=== PATIENT | female | born 1965 | race Caucasian/White ===

== ENCOUNTER → 2016-06-02 | Outpatient (CLI) | payer BC, OTHER ==
[~2016-06-02] MED LIST: ASP325T PO; CALC1TAB PO; CALTRATE PO; CYAN250010 PO; DOCU100C37 PO; ESTR1TAB24 PO; ESZO3TAB30 PO; IBUP-1780 PO; LISI10TA PO; LYSI500T PO; MEDR10TA9 PO; METH5TAB5 PO; MULT-608 PO; NEBI5TAB8 PO; NFNEB10T PO; OXYC-465 PO; ROSU10TA12 PO; SPRINTEC PO; TERB250T PO
[2016-06-02 23:54] LABS: CALCIUM IONIZED 1.16 mmol/L (1.16-1.32); CORRECTED IONIZED CALCIUM 1.16 mmol/L (1.16-1.32)
[2016-06-03 08:12] LABS: CALCIUM PH 7.39
== END ==
LOC: LAB 14:11
PROVIDERS: ATTEND Otolaryngology
DX: E04.2 Nontoxic multinodular goiter (principal); E03.8 Other specified hypothyroidism
CPT/HCPCS: 36415; 82330

== ENCOUNTER → 2016-09-19 | Outpatient (CLI) | payer BC ==
--- NOTE | 2016-09-19 17:04 | Diagnostic Imaging Report ---
EXAMINATION: Three views of the lumbar spine. INDICATION: Back pain. FINDINGS: There is satisfactory alignment of the posterior spinal line. There is preserved vertebral body height. Mild disc height loss at L4-L5 and L5-S1 is seen. No significant posterior osteophytes noted. There are mild anterior osteophytes in the [id number] lumbar spine. Minimal sclerotic degenerative changes in the right SI joint are seen. IMPRESSION: Mild lower lumbar spine disc degenerative changes. Dictated by: Dictated on workstation # [id number]
--- NOTE | 2016-09-19 18:16 | Diagnostic Imaging Report ---
Three views of the thoracic spine. INDICATION: Back pain. FINDINGS: The alignment of the thoracic spine is satisfactory. The vertebral body heights are preserved. Disc heights are also preserved. There is multilevel mild anterior osteophyte formation seen. No posterior osteophytes are evident. The paravertebral soft tissues appear unremarkable. IMPRESSION: Minimal degenerative changes. Dictated by: Dictated on workstation # [id number]
== END ==
LOC: RAD 14:58
PROVIDERS: ATTEND Nurse Practitioner Family
DX: M54.5 Low back pain; M54.6 Pain in thoracic spine
CPT/HCPCS: 72072; 72100

== ENCOUNTER → 2016-09-26 | Outpatient (CLI) | payer BC ==
--- NOTE | 2016-09-26 17:08 | Diagnostic Imaging Report ---
PROCEDURE: MRI lumbar spine. TECHNIQUE: Multiplanar, multisequence MRI of the lumbar spine was performed without contrast. INDICATION: Back pain. There are no previous MRI examinations available for comparison. FINDINGS: The plain film examination of the lumbar spine performed on 09/19/16 failed to show any sign of an acute abnormality. However, there was degenerative disc and bony disease at L5-S1 and to a lesser degree at L4-L5. On the parasagittal images of this exam, there is again evidence of narrowing of the disc spaces at L5-S1 and L4-L5. The discs at these 2 levels are desiccated as well. At the L5-S1 level, there is a disc bulge eccentric to the left. The disc indents the left ventral aspect of the thecal sac and narrows the AP diameter to approximately 8.2 mm. There does not appear to be any significant narrowing of the neuroforamen at this level. At L4-L5, there is also a disc bulge slightly eccentric to the left. The disc narrows the AP diameter of the thecal sac to approximately 8.9 mm. There does not appear to be any significant neuroforaminal narrowing at this level. The remainder of the lumbar spine is unremarkable for spinal stenosis or nerve root encroachment. There is no abnormal signal arising from the cord or the vertebral bodies to indicate an acute abnormality. There is no sign of a paraspinal mass. IMPRESSION: 1. There is degenerative disc and bony disease at L4-L5 and L5-S1. There is mild central stenosis on the left at both these levels. There is no significant narrowing of the neuroforamen. 2. The remainder of the lumbar spine is unremarkable for spinal stenosis or nerve root encroachment. 3. There is no sign of an acute bony abnormality or of a cord lesion. Dictated by: Dictated on workstation # [id number]
== END ==
LOC: RAD 16:02
PROVIDERS: ATTEND Nurse Practitioner Family
DX: M51.36 Other intervertebral disc degeneration, lumbar region (principal)
CPT/HCPCS: 72148

== ENCOUNTER → 2016-10-07 | Outpatient (CLI) | payer BC ==
--- NOTE | 2016-10-10 09:32 | Diagnostic Imaging Report ---
EXAMINATION: Bilateral screening mammogram 2D views with tomosynthesis. The current study was also evaluated with a Computer Aided Detection (CAD) system. INDICATION: Screening. PERSONAL HISTORY: No current complaints stated on the questionnaire. COMPARISON: 10/07/2015. FINDINGS: The breasts are composed of heterogeneously dense parenchyma which may decrease mammographic sensitivity. Allowing for technique and positional differences, no suspicious change is seen. IMPRESSION: Dense breasts with no definite change. ACR BI-RADS Category 2: Benign findings. Result letter will be mailed to the patient. Note: At least 10% of breast cancer is not imaged by mammography. Dictated by: Dictated on workstation # [id number]
== END ==
LOC: RAD 10:26
PROVIDERS: ATTEND Obstetrics & Gynecology
DX: Z12.31 Encounter for screening mammogram for malignant neoplasm of breast (principal)
CPT/HCPCS: 77067

== ENCOUNTER 2017-05-26 05:42 | Outpatient (CLI) | payer BC ==
[~2017-05-26] VITALS: Ht 170.2 cm; Wt 93.0 kg
[2017-05-26] MEDS ORDERED: MULT1CAP27 PO (12:36)
[2017-05-26] MEDS ORDERED: LEVO100T7 PO (12:36)
[2017-05-26] MEDS ORDERED: ROSU10TA PO (12:36)
== END 2017-05-26 12:40 ==
LOC: PREOP 05:42
PROVIDERS: ATTEND Internal Medicine
DX: Z01.818 Encounter for other preprocedural examination (principal); Z12.11 Encounter for screening for malignant neoplasm of colon; Z80.0 Family history of malignant neoplasm of digestive organs

== ENCOUNTER 2017-06-02 06:57 | Day surgery (SDC) | payer BC ==
--- NOTE | 2017-05-19 12:29 | HISTORY AND PHYSICAL ---
DATE OF SERVICE: 06/02/2017 ADDENDUM: The patient was seen for H&P on 05/15/2017. HISTORY OF PRESENT ILLNESS: The patient is a 52-year-old white female referred by Dr Olmstead for screening colonoscopy. She is deemed to be of higher than average risk as her mother was diagnosed with colon cancer around the age of 60. The patient reports around 03/13, she did have the onset of diarrhea with small amount of bright red blood. She had no chills or fever, had some mild crampy abdominal pain. It was only on one occasion and has not recurred since. She currently feels well, reporting stable weight. Denying abdominal pain, bowel habit change other than the above which lasted for several days. She states that she has been feeling well. No chest pain, shortness of breath or dyspnea on exertion. MEDICATIONS ON ADMISSION: Include Crestor 10 mg daily, estradiol 1 mg daily, Bystolic 5 mg daily, Caltrate with D one daily, and L-thyroxine 100 mcg daily. PAST SURGICAL HISTORY: She had thyroidectomy for what sounds like multinodular goiter in 05/2016 and has been on thyroid replacement since. She had total abdominal hysterectomy in 02/2016 and appendectomy in 2009. FAMILY HISTORY: Most notable for mother diagnosed with colon cancer at the age of 60. 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 PHYSICAL EXAMINATION: GENERAL: Reveals a well-appearing white female in no acute distress. VITAL SIGNS: Blood pressure 124/94, pulse 66 and regular. HEENT: She is a Mallampati class II oropharyngeal configuration. No evidence for pharyngeal erythema is noted. CHEST: Clear to auscultation. CARDIOVASCULAR: Reveals a regular rate and rhythm without murmur, S3 or S4. ABDOMEN: Soft, supple without mass, organomegaly or tenderness. EXTREMITIES: Reveal no cyanosis, clubbing or edema. ASSESSMENT: The patient is set up for screening colonoscopy on 06/02/2017. Prep instructions with the Suprep kit were given and she is deemed to be of higher than average risk as there is a first degree family history of colon cancer. Index case being her mother diagnosed around the age of 60. I thank you for the referral of this pleasant lady. Job ID: [id number] DocumentID: [id number] Dictated Date: 05/19/2017 11:37:20 Forging Machine Operator Date: 05/19/2017 12:28:16 Dictated By: JULES MELO MD MTDD
[~2017-06-02] VITALS: Ht 170.2 cm; Wt 93.0 kg
[~2017-06-02 06:57] MED LIST changes: +LEVO100T7 PO; +MULT1CAP27 PO; +ROSU10TA PO
--- OUTSIDE RECORDS SUMMARY | 2017-06-02 07:00 | XMS REPORT | Clinical Summary ---
Author Author [facility] Organization [facility] Address Unknown Phone Unavailable Care Team Providers Care Rubber Turner Name Role Phone Jeremiah Hanley MD PCP Flores Krishnan MD Unavailable Source Comments Some departments are not documenting in the electronic medical record. If you do not see the information that you expected, contact Release of Information in the Health Information Management department at [phone] for further assistance in locating additional records.[facility] Allergies Not on File Current Medications Prescription Sig. Disp. Refills Start End Date Status Date rosuvastatin (CRESTOR) 10 Take 10 mg by mouth Active mg tablet daily. nebivolol (BYSTOLIC) 5 mg Take 5 mg by mouth daily. Active tablet aspirin EC 81 mg tablet Take 81 mg by mouth Active daily. cyanocobalamin (VITAMIN Take 1,000 mcg by mouth Active B-12) 1,000 mcg tablet daily. CALCIUM CARBONATE Take by mouth. Active (CALTRATE 600 PO) MULTIVIT WITH Take 1 Tab by mouth Active CALCIUM,IRON,MIN daily. (ONE-A-DAY WOMENS FORMULA PO) zolpidem CR (AMBIEN CR) Take 12.5 mg by mouth at Active 12.5 mg tablet bedtime as needed. methimazole (TAPAZOLE) 5 Take 1 Tab by mouth 30 Tab 11 08/10/19 Active mg tablet daily. 12 Active Problems Problem Noted Date Thyroid dysfunction 07/26/2011 Hyperthyroidism 07/26/2011 Goiter 07/26/2011 HTN (hypertension) 07/26/2011 Family History Medical History Relation Name Comments Hypertension Mother Thyroid Disease Mother Relation Name Status Comments Father (Age 50) Mother Alive Social History Tobacco Use Types Packs/Day Years Used Date Never Smoker Smokeless Tobacco: Never Used Tobacco Cessation: Counseling Given: No Sex Assigned at Date Recorded Not on file Last Filed Vital Signs Vital Sign Reading Time Taken Blood Pressure 108/61 07/26/2011 12:52 PM CDT Pulse 75 07/26/2011 12:52 PM CDT Temperature - - Respiratory Rate - - Oxygen Saturation - - Inhaled Oxygen - - Concentration Weight 67.9 kg (149 lb 9.6 oz) 07/26/2011 12:52 PM CDT Height - - Body Mass Index - - Plan of Treatment Health Maintenance Due Date Last Done Comments HEPATITIS C SCREENING 1964 PHYSICAL (COMPREHENSIVE) 1971 EXAM PERTUSSIS VACCINE 1975 HIV SCREENING 1979 TETANUS VACCINE 1981 CERVICAL CANCER SCREENING 1994 BREAST CANCER SCREENING 2004 COLORECTAL CANCER 2014 SCREENING INFLUENZA VACCINE 12/11/2017 Results Not on filefrom Last 3 Months
[2017-06-02] MEDS ORDERED: 1/2 NS IV SOLUTION 1,000 ML IV STA (07:01)
[2017-06-02] MEDS ORDERED: LIDOCAINE JELLY 2% (XYLOCAINE) 5 ML TUBE MM PRN (07:15)
[2017-06-02 07:24] VITALS: BP 140/86
[2017-06-02] MEDS ORDERED: fentaNYL INJECTION 100 MCG/2 ML AMP ONE ×2 (07:41→08:35)
[2017-06-02] MEDS ORDERED: LIDOCAINE JELLY 2% (XYLOCAINE) 5 ML TUBE ONE (07:41)
[2017-06-02] MEDS ORDERED: MIDAZOLAM 2 MG/2 ML (VERSED) VIAL ONE ×3 (07:42)
[2017-06-02] MEDS: fentaNYL INJECTION 100 MCG/2 ML AMP IVP PRN ×4 (08:05→08:40)
[2017-06-02] MEDS: MIDAZOLAM 2 MG/2 ML (VERSED) VIAL IVP PRN ×3 (08:06→08:41)
[2017-06-02] MEDS ORDERED: ONDANSETRON 4 MG/2 ML (SDV) Z0FRAN ONE (08:44)
[2017-06-02] MEDS ORDERED: ONDANSETRON 4 MG/2 ML (SDV) Z0FRAN IVP ONE (09:00)
[2017-06-02 09:10] VITALS: BP 159/52
[2017-06-02 09:34] VITALS: BP 132/76
--- NOTE | 2017-06-02 10:08 | Pre-Op Note & Conscious Sedat ---
Pre-Operative Progress Note H&P Reviewed The H&P was reviewed, patient examined and no changes noted. Date H&P Reviewed: Jun 02, 2017 Time H&P Reviewed: 07:45 Conscious Sedation Pre-Proced ASA Class: 2 Airway Mallampati Classification: (kalt[place] appropriate class) I. II. III, IV Lungs Heart ASA score ASA 1: a normal healthy patient ASA 2: a patient with a mild systemic disease (mid diabetes, controlled hypertension, obesity ASA 3: a patient with a severe systemic disease that limits activity (angina , COPD, prior Myocardial infarction) ASA 4: a patient with an incapacitating disease that is a constant threat to life (CHF, renal failure) ASA 5: a moribund patient not expected to survive 24 hrs. (ruptured aneurysm) ASA 6: a declared brain patient whose organs are being harvested. For emergent operations, add the letter E after the classification Grade 2 Sedation Plan: Analgesia, Amnesia, Plan communicated to team members, Discussed options with patient/fam, Discussed risks with patient/fam Note The patient is an appropriate candidate to undergo the planned procedure, sedation, and anesthesia. The patient immediately re-assessed prior to indication. JULES MELO MD Jun 02, 2017 10:08
[2017-06-02 10:30] VITALS: BP 132/76
--- NOTE | 2017-06-02 15:24 | OPERATIVE REPORT ---
DATE OF SERVICE: 06/02/2017 REFERRING PHYSICIAN: Oscar Olmstead MD INDICATION FOR THE PROCEDURE: Screening colonoscopy, family history of colon cancer. DESCRIPTION OF THE PROCEDURE: The patient was placed in left lateral decubitus position. Prior to undergoing colonoscopy digital rectal evaluation was performed. Anal sphincter tone was normal and the perianal reflexes intact. No abnormalities were noted on visual inspection of anal canal or distal rectal vault. The colonoscope was then inserted into the rectum and under direct visualization advanced to the cecum. The cecum was identified by identification of the ileocecal valve and cecal strap. Photographic documentation was obtained. Careful inspection was made as the colonoscope withdrawn. The patient tolerated the procedure well. FINDINGS: There was no evidence for internal or external hemorrhoids. Present distal rectum with a diminutive sessile 2 mm hyperplastic appearing polyp. It was biopsied, ablated and submitted for histopathology with no noted blood loss. The remainder of the rectum was unremarkable. There is sigmoid and colonic redundancy, but no evidence for diverticular disease or polyps. The descending colon, splenic flexure, transverse colon, hepatic flexure, ascending colon and cecum were unremarkable. ASSESSMENT: Diminutive hyperplastic appearing polyp was present in the distal rectum. It was subsequently biopsied and ablated with hot forceps with no subsequent blood loss. No other significant abnormalities were noted on today's procedure. Considering family history we would advocate consideration for repeat screening colonoscopy in 5 years. I thank you for the referral of this pleasant lady. Job ID: [id number] DocumentID: [id number] Dictated Date: 06/02/2017 10:21:55 Electrical Fitter Date: 06/02/2017 14:32:59 Dictated By: JULES MELO MD
== END 2017-06-02 10:30 | disposition home or self-care (01) ==
LOC: ENDO 06:57
PROVIDERS: ATTEND Internal Medicine
DX: Z12.11 Encounter for screening for malignant neoplasm of colon (principal); K62.1 Rectal polyp; Z80.0 Family history of malignant neoplasm of digestive organs; Z79.899 Other long term (current) drug therapy

== ENCOUNTER → 2017-10-11 | Outpatient (CLI) | payer BC ==
--- NOTE | 2017-10-11 12:19 | Diagnostic Imaging Report ---
INDICATION: Routine screening. Comparison is made with prior exam from 10/07/2016 and 10/07/2015. 2-D and 3-D bilateral screening mammography was performed with a Computer Aided Detection (CAD) system. FINDINGS: Both breasts remain heterogeneously dense, limiting the sensitivity of mammography. The parenchymal pattern is stable. There are benign calcifications bilaterally. No dominant mass or malignant appearing microcalcifications are seen. The axillae are unremarkable. IMPRESSION: No mammographic features suspicious for malignancy are identified. ACR BI-RADS Category 2: Benign findings. Result letter will be mailed to the patient. Note: At least 10% of breast cancer is not imaged by mammography. Dictated by: Dictated on workstation # [id number]
== END ==
LOC: RAD 10:00
PROVIDERS: ATTEND Obstetrics & Gynecology
DX: Z12.31 Encounter for screening mammogram for malignant neoplasm of breast (principal)
CPT/HCPCS: 77067

== ENCOUNTER → 2018-01-08 | Outpatient (CLI) | payer BC ==
--- NOTE | 2018-01-08 11:57 | Diagnostic Imaging Report ---
PROCEDURE: US left lower extremity venous. TECHNIQUE: Multiple Real-time grayscale images were obtained over the left lower extremity in various projections. Additional duplex Doppler and color Doppler images were also obtained. INDICATION: Left leg pain. FINDINGS: The veins in the left leg have good color filling and compressibility. There is normal spontaneous and augmented flow. IMPRESSION: Negative venous Doppler left leg. Dictated by: Dictated on workstation # [id number]
== END ==
LOC: RAD 11:11
PROVIDERS: ATTEND Nurse Practitioner Family
DX: M79.605 Pain in left leg (principal); R20.2 Paresthesia of skin

== ENCOUNTER → 2018-02-22 | Outpatient (CLI) | payer BC | LOC: CARD 11:52 | PROVIDERS: ATTEND Internal Medicine Cardiovascular Disease | DX: I82.409 Acute embolism and thrombosis of unspecified deep veins of unspecified lower extremity (principal); R00.2 Palpitations; E78.5 Hyperlipidemia, unspecified; I10 Essential (primary) hypertension; I08.1 Rheumatic disorders of both mitral and tricuspid valves | CPT/HCPCS: 93306 ==

== ENCOUNTER → 2018-04-11 | Outpatient (CLI) | payer BC ==
[~2018-04-11] MED LIST changes: +CATHETER FLUSH 10 ML SYR IV PRN
[2018-04-11 09:29] VITALS: BP 174/78
--- NOTE | 2018-04-11 14:53 | STRESS TEST ---
DATE OF SERVICE: 04/11/2018 EXERCISE MYOVIEW STRESS TEST REPORT REFERRING PHYSICIAN: Dr. Olmstead. Baseline heart rate is 60. Baseline blood pressure 141/92. Baseline EKG, sinus rhythm with no ischemic changes. In summary, the patient was injected with 10.86 mCi of technetium-99 Myoview and the resting images were obtained. Then, the patient started exercising with a baseline heart rate, blood pressure and EKG mentioned above. The patient was able to exercise for 6 minutes 30 seconds on standard Dg protocol. With peak exercise level, EKG was showing [address] depression in II, III, aVF, V4, V5 and V6. During recovery, the ST depression became more horizontal with T-wave inversion. The resting and stress images were reviewed and compared in the short axis, horizontal long axis, and vertical long axis views. Review of the images showed breast attenuation with reversible ischemia involving the mid to apical anterior wall and anterolateral wall. SSS is 8, SDS 8, TID value 0.92. On the gated images, the left ventricle appeared to be normal in size with normal contractility. Calculated ejection fraction 57%. CONCLUSION: 1. Fair exercise tolerance, a total of 6 minutes 30 seconds on standard Dg protocol, total of 7.9 METS achieving 91% of maximum expected heart rate. 2. Hypertensive response to exercise, returned to baseline during recovery. 3. Reversible ischemia involving the mid to apical anterior wall and anterolateral wall. 4. Nondiagnostic EKG changes with exercise returned to baseline during recovery. 5. Normal left ventricular size with normal contractility. Calculated ejection fraction 57%. Job ID: [id number] DocumentID: [id number] Dictated Date: 04/11/2018 14:28:00 Acquisition Marketing Coordinator Date: 04/11/2018 14:52:42 Dictated By: OLIVIA QUINONES MD
== END ==
LOC: CARD 07:30
PROVIDERS: ATTEND Physician Assistant
DX: R00.2 Palpitations (principal); E78.5 Hyperlipidemia, unspecified; I10 Essential (primary) hypertension
CPT/HCPCS: 78452; 93017

== ENCOUNTER 2018-04-25 08:46 | Day surgery (SDC) | payer BC ==
[~2018-04-25] VITALS: Ht 170.2 cm; Wt 95.3 kg
[~2018-04-25 08:46] MED LIST changes: -CATHETER FLUSH 10 ML SYR IV PRN
[2018-04-25] MEDS ORDERED: LIDOCAINE 1% INJ 20 ML 20 ML VIAL ONE (09:08)
[2018-04-25] MEDS ORDERED: HEParin (CATH LAB) 2,000 ML IV ONE (09:08)
[2018-04-25] MEDS ORDERED: NS IV 1000 ML 1,000 ML ONE (09:08)
[2018-04-25 09:28] VITALS: BP 141/79
[2018-04-25] MEDS ORDERED: LISI10TA2 PO (09:36)
[2018-04-25 09:59] LABS: HEMOGLOBIN 12.9 G/DL (11.5-16.0); MEAN PLATELET VOLUME 10.5 FL (7.4-10.4); RED CELL DISTRIBUTION WIDTH 13.7 % (10.0-14.5); WHITE BLOOD COUNT 7.3 10^3/uL (4.3-11.0)
--- NOTE | 2018-04-25 10:01 | Diagnostic Imaging Report ---
INDICATION: Abnormal stress test. Chest pain. Hypertension. COMPARISON: 01/12/2010 FINDINGS: Single frontal view of the chest demonstrates normal heart size and pulmonary vascularity. The lungs are well aerated and clear. No large pleural effusion or pneumothorax is seen. The visualized osseous structures show no acute abnormalities. IMPRESSION: 1. No acute cardiopulmonary process. Dictated by: Dictated on workstation # [id number]
[2018-04-25 10:08] LABS: PROTHROMBIN TIME PATIENT 12.7 SEC (12.2-14.7)
[2018-04-25] MEDS ORDERED: FLU QUADRIvalent (5+ YOA) 2018-2019 (AFLURIA) 0.5 ML IM ONE (10:15)
[2018-04-25] MEDS ORDERED: NS IV 1000 ML 1,000 ML IV SCH ×3 (10:15→11:15)
[2018-04-25 10:16] LABS: ALANINE AMINOTRANSFERASE 14 U/L (0-55); ALBUMIN 4.2 GM/DL (3.2-4.5); ALKALINE PHOSPHATASE 110 U/L (40-136); BILIRUBIN,TOTAL 0.5 MG/DL (0.1-1.0); BUN/CREATININE RATIO 21; CALCIUM 8.8 MG/DL (8.5-10.1); CARBON DIOXIDE 24 MMOL/L (21-32); CHLORIDE 105 MMOL/L (98-107); GFR ESTIMATED > 60; GLUCOSE 87 MG/DL (70-105); SODIUM 140 MMOL/L (135-145); TOTAL PROTEIN 7.1 GM/DL (6.4-8.2)
[2018-04-25] MEDS ORDERED: MIDAZOLAM 5 MG/5 ML (VERSED) VIAL ONE (10:22)
[2018-04-25] MEDS ORDERED: fentaNYL INJECTION 100 MCG/2 ML AMP ONE (10:22)
[2018-04-25] MEDS ORDERED: PATIENT MAY USE OWN MEDS, ALL PO SCH ×2 (11:15)
--- NOTE | 2018-04-25 11:17 | Discharge Inst-Post CATH ---
Discharge Inst-CATH/EP Post Cardiac Cath/EP D/C Inst Follow Up/Plan Appointment with Dr. Ledbetter's office in 4 weeks CARDIAC CATH DISCHARGE INSTRUCTIONS *Hold Metformin for 48 hours post heart cath. ACTIVITY * Go Home directly and rest. * Limit activity of the leg (or wrist if it was used) for 7 days including aerobics, swimming, jogging, bicycling, etc. * Restrict stair-climbing for 7 days if possible, if not, climb up with your non -cath leg, then bring together on the same step. * Avoid lifting, pushing, pulling or excessive movement of the affected extremity for 7 days. * Customary sexual activity may be resumed after 2 days-use caution not to use a position that strains or causes pain to the affected extremity. * No driving for 24 hours. * NO SMOKING. * Avoid straining for bowel movements for 7 days. * Gentle walking on level ground is allowed. * Returning to work will depend on the type of procedure and the results. Your doctor will discuss this with you. CALL YOUR DOCTOR FOR ANY OF THE FOLLOWING: *If bleeding from the puncture site occurs- Apply gentle pressure to site with clean cloth and call your doctor or EMS. * If a knot or lump forms under the skin, increases in size, or causes pain. * If bruising appears to be worsening or moving further down your leg instead of disappearing. * Temperature above 101 F. CARE OF YOUR GROIN INCISION; * Bruising or purple discoloration of the skin near the puncture site is common. * You may shower only, no bathtub bathing for 5 days. Be careful to avoid slipping as your leg may feel stiff. * If a closure device was used on your femoral artery, please see the attached guide regarding care of the device and your leg. * Leave the dressing on, until removed by office staff. CARE OF YOUR WRIST INCISION; * Bruising or purple discoloration of the skin near the puncture site is common. * You may shower. * DO NOT submerge wrist. * Leave dressing on, until removed by office staff.. OLIVIA LEDBETTER MD Apr 25, 2018 11:17
--- NOTE | 2018-04-25 11:21 | Cardiac Cath Report ---
Cardiac Cath Report Physician (s)/Blast Furnace Operator (s) Physician OLIVIA QUINONES MD Pre-Procedure Diagnosis Pre-Procedure Diagnosis: coronary artery disease Post-Procedure Note Procedure Start Date: Apr 25, 2018 Name of Procedure: left heart catheterization Findings/Procedure Note PROCEDURE NOTE: After explaining the procedure to the patient, all pros and cons were explained , all questions were answered. The patient signed the consent and then she was placed on the cardiac catheterization laboratory. Groin was prepped SL fashion local anesthesia was used. Sheath placed in the right femoral artery. Michelle right and left catheter were used to access the coronary system. Pigtail was used to access the left ventricular cavity. Left ventriculogram was not done, pressure was measured At the end of the procedure the sheath was removed. Closure device was not used FINDINGS: Hemodynamics LV 187/16, end-diastolic pressure of 16 Aorta 169/84 mean of 114 ANATOMY: Left Main is free of obstructive disease Left Anterior Descending has mild disease nonobstructive disease Left Circumflex is dominant artery with mild disease, nonobstructive disease Right Coronory Artery has mild disease nonobstructive disease CONCLUSION: 1. Mild coronary artery disease nonobstructive disease 2. Hypertension with mild elevation in left ventricular end-diastolic pressure DISCUSSION AND RECOMMENDATION: continue to maximize medical therapy, no intervention is needed Anesthesia Type: Conscious Sedation Estimated blood loss (mL): 15 ml Contrast Amount: 30 ml Total Radiation Dose: 195 mGy Post-Procedure Diagnosis Post-operative diagnosis: Chest pain Coronary artery disease Hypertension Hyperlipidemia OLIVIA QUINONES MD Apr 25, 2018 11:21
--- OUTSIDE RECORDS SUMMARY | 2018-04-25 11:37 | XMS REPORT | Clinical Summary ---
Author Author [facility] Organization [facility] Address Unknown Phone Unavailable Care Team Providers Care Facing End Trimmer Name Role Phone Jeremiah Hanley MD PCP Flores Krishnan MD Unavailable Source Comments Some departments are not documenting in the electronic medical record. If you do not see the information that you expected, contact Release of Information in the Health Information Management department at [phone] for further assistance in locating additional records.[facility] Allergies Not on File Medications End Date Status Medication Sig Dispensed Refills Start Date Active rosuvastatin (CRESTOR) 10 Take 10 mg by 0 mg tablet mouth daily. Active nebivolol (BYSTOLIC) 5 mg Take 5 mg by 0 tablet mouth daily. Active aspirin EC 81 mg tablet Take 81 mg by 0 mouth daily. Active cyanocobalamin (VITAMIN Take 1,000 0 B-12) 1,000 mcg tablet mcg by mouth daily. Active CALCIUM CARBONATE Take by 0 (CALTRATE 600 PO) mouth. Active MULTIVIT WITH Take 1 Tab by 0 CALCIUM,IRON,MIN mouth daily. (ONE-A-DAY WOMENS FORMULA PO) Active zolpidem CR (AMBIEN CR) Take 12.5 mg 0 12.5 mg tablet by mouth at bedtime as needed. Active methimazole (TAPAZOLE) 5 Take 1 Tab by 30 Tab 11 08/09/201 mg tablet mouth daily. 2 Active Problems Problem Noted Date Thyroid dysfunction 07/26/2011 Hyperthyroidism 07/26/2011 Goiter 07/26/2011 HTN (hypertension) 07/26/2011 Family History Medical History Relation Name Comments Hypertension Mother Thyroid Disease Mother Relation Name Status Comments Father (Age 50) Mother Alive Social History Date Tobacco Use Types Packs/Day Years Used Never Smoker Smokeless Tobacco: Never Used Tobacco Cessation: Counseling Given: No Sex Assigned at Date Recorded Not on file Industry Job Start Date Occupation Not on file Not on file Not on file Travel End Travel History Travel Start No recent travel history available. Last Filed Vital Signs Time Taken Vital Sign Reading 07/26/2011 12:52 PM CDT Blood Pressure 108/61 07/26/2011 12:52 PM CDT Pulse 75 - Temperature - - Respiratory Rate - - Oxygen Saturation - - Inhaled Oxygen - Concentration 07/26/2011 12:52 PM CDT Weight 67.9 kg (149 lb 9.6 oz) - Height - - Body Mass Index - Plan of Treatment Health Maintenance Due Date Last Done Comments HEPATITIS C SCREENING 1964 PHYSICAL (COMPREHENSIVE) 1971 EXAM HIV SCREENING 1979 DTAP/TDAP VACCINES (1 - 1982 Tdap) CERVICAL CANCER SCREENING 1994 BREAST CANCER SCREENING 2004 COLORECTAL CANCER 2014 SCREENING SHINGLES RECOMBINANT 2014 VACCINE (1 of 2) INFLUENZA VACCINE 10/11/2017 Results Not on filefrom Last 3 Months
--- OUTSIDE RECORDS SUMMARY | 2018-04-25 11:38 | XMS REPORT | Continuity of Care Document ---
Author Author [facility] Organization [facility] Address Unknown Phone Unavailable Allergies Active Description Code Type Severity Reaction Onset Reported/Identified Relationship to Patient Clinical Status Yes No Known Drug Allergies [id number] Drug Allergy Unknown N/A 05/26/2017 Medications There is no data. Problems Date Dx Coded Attending Type Code Diagnosis Diagnosed By 08/27/2009 Ot 540.9 ACUTE APPENDICITIS NOS 08/27/2009 Ot 789.59 OTHER ASCITES 02/25/2014 MENDEZ MARLEY LEISURE STUDIES PROFESSOR Ot 719.41 02/25/2014 MENDEZ MARLEY LEISURE STUDIES PROFESSOR Ot 719.41 10/10/2014 ALEJANDRO FARIA MD Ot V76.12 10/30/2014 MENDEZ MARLEY APRN Ot 453.41 10/30/2014 ALEJANDRO FARIA MD Ot V76.12 10/08/2015 ALEJANDRO FARIA MD Ot Z12.31 ENCNTR SCREEN MAMMOGRAM FOR MALIGNANT NE 10/08/2015 ALEJANDRO FARIA MD Ot Z12.31 ENCNTR SCREEN MAMMOGRAM FOR MALIGNANT NE 10/16/2015 OLIVIA QUINONES MD Ot E78.2 MIXED HYPERLIPIDEMIA 10/16/2015 OLIVIA QUINONES MD Ot I10 ESSENTIAL (PRIMARY) HYPERTENSION 10/16/2015 OLIVIA QUINONES MD Ot I82.409 ACUTE EMBOLISM AND THOMBOS UNSP DEEP VN 10/16/2015 OLIVIA QUINONES MD Ot R00.2 PALPITATIONS 10/16/2015 OLIVIA QUINONES MD Ot Z82.49 FAMILY HX OF ISCHEM HEART DIS AND OTH DI 10/16/2015 OLIVIA QUINONES MD, Ot E78.2 MIXED HYPERLIPIDEMIA 10/16/2015 OLIVIA QUINONES MD Ot I10 ESSENTIAL (PRIMARY) HYPERTENSION 10/16/2015 OLIVIA QUINONES MD, Ot I82.409 ACUTE EMBOLISM AND THOMBOS UNSP DEEP VN 10/16/2015 OLIVIA QUINONES MD Ot R00.2 PALPITATIONS 10/16/2015 OLIVIA QUINONES MD Ot Z82.49 FAMILY HX OF ISCHEM HEART DIS AND OTH DI 10/23/2015 ALEJANDRO FARIA MD, Ot Z12.31 ENCNTR SCREEN MAMMOGRAM FOR MALIGNANT NE 10/27/2015 Ot V76.12 OTH SCREEN MAMMO-MALIGN NEOPLASM OF [place] 10/27/2015 Ot V76.12 OTH SCREEN MAMMO-MALIGN NEOPLASM OF [place] 10/27/2015 Ot 368.2 DIPLOPIA 10/27/2015 JANIE IVON Bessy BAKE ROOM WORKER Ot 300.12 DISSOCIATIVE AMNESIA 10/27/2015 ALEJANDRO FARIA MD Ot 793.82 INCONCLUSIVE MAMMOGRAM 10/27/2015 ALEJANDRO FARIA MD, Ot V76.12 OTH SCREEN MAMMO-MALIGN NEOPLASM OF [place] 10/27/2015 ALEJANDRO FARIA MD Ot 793.80 UNSPEC ABNORMAL MAMMOGRAM 10/27/2015 ALEJANDRO FARIA MD Ot 793.80 UNSPEC ABNORMAL MAMMOGRAM 10/27/2015 ALEJANDRO FARIA MD, Ot V76.12 OTH SCREEN MAMMO-MALIGN NEOPLASM OF [place] 10/27/2015 MENDEZ MARLEY LEISURE STUDIES PROFESSOR Ot 719.41 JOINT PAIN-SHLDER 10/27/2015 MENDEZ MARLEY LEISURE STUDIES PROFESSOR Ot 719.41 JOINT PAIN-SHLDER 10/27/2015 ALEJANDRO FARIA MD, Ot V76.12 OTH SCREEN MAMMO-MALIGN NEOPLASM OF [place] 10/27/2015 MENDEZ MARLEY LEISURE STUDIES PROFESSOR Ot 453.41 ACUTE VENOUS EMBOLISM THROMBOSIS DEEP 10/27/2015 ALEJANDRO FARIA MD, Ot Z12.31 ENCNTR SCREEN MAMMOGRAM FOR MALIGNANT NE 10/27/2015 OLIVIA QUINONES MD Ot E78.2 MIXED HYPERLIPIDEMIA 10/27/2015 OLIVIA QUINONES MD Ot I10 ESSENTIAL (PRIMARY) HYPERTENSION 10/27/2015 OLIVIA QUINONES MD Ot I82.409 ACUTE EMBOLISM AND THOMBOS UNSP DEEP VN 10/27/2015 OLIVIA QUINONES MD Ot R00.2 PALPITATIONS 10/27/2015 OLIVIA QUINONES MD, Ot Z82.49 FAMILY HX OF ISCHEM HEART DIS AND OTH DI 12/03/2015 Ot V76.12 OTH SCREEN MAMMO-MALIGN NEOPLASM OF [place] 12/03/2015 Ot V76.12 OTH SCREEN MAMMO-MALIGN NEOPLASM OF [place] 12/03/2015 Ot 368.2 DIPLOPIA 12/03/2015 IVON LIMA BAKE ROOM WORKER Ot 300.12 DISSOCIATIVE AMNESIA 12/03/2015 ALEJANDRO FARIA MD Ot 793.82 INCONCLUSIVE MAMMOGRAM 12/03/2015 ALEJANDRO FARIA MD, Ot V76.12 OTH SCREEN MAMMO-MALIGN NEOPLASM OF [place] 12/03/2015 ALEJANDRO FARIA MD Ot 793.80 UNSPEC ABNORMAL MAMMOGRAM 12/03/2015 ALEJANDRO FARIA MD Ot 793.80 UNSPEC ABNORMAL MAMMOGRAM 12/03/2015 ALEJANDRO FARIA MD, Ot V76.12 OTH SCREEN MAMMO-MALIGN NEOPLASM OF [place] 12/03/2015 MENDEZ MARLEY LEISURE STUDIES PROFESSOR Ot 719.41 JOINT PAIN-SHLDER 12/03/2015 MENDEZ MARLEY N LEISURE STUDIES PROFESSOR Ot 719.41 JOINT PAIN-SHLDER 12/03/2015 ALEJANDRO FARIA MD, Ot V76.12 OTH SCREEN MAMMO-MALIGN NEOPLASM OF [place] 12/03/2015 MENDEZ MARLEY LEISURE STUDIES PROFESSOR Ot 453.41 ACUTE VENOUS EMBOLISM THROMBOSIS DEEP 12/03/2015 ALEJANDRO FARIA MD Ot Z12.31 ENCNTR SCREEN MAMMOGRAM FOR MALIGNANT NE 12/03/2015 OLIVIA QUINONES MD Ot E78.2 MIXED HYPERLIPIDEMIA 12/03/2015 OLIVIA QUINONES MD Ot I10 ESSENTIAL (PRIMARY) HYPERTENSION 12/03/2015 OLIVIA QUINONES MD Ot I82.409 ACUTE EMBOLISM AND THOMBOS UNSP DEEP VN 12/03/2015 OLIVIA QUINONES MD Ot R00.2 PALPITATIONS 12/03/2015 OLIVIA QUINONES MD Ot Z82.49 FAMILY HX OF ISCHEM HEART DIS AND OTH DI 12/31/2015 OLIVIA QUINONES MD Ot E78.2 MIXED HYPERLIPIDEMIA 12/31/2015 OLIVIA QUINONES MD Ot I10 ESSENTIAL (PRIMARY) HYPERTENSION 12/31/2015 OLIVIA QUINONES MD Ot I82.409 ACUTE EMBOLISM AND THOMBOS UNSP DEEP VN 12/31/2015 OLIVIA QUINONES MD Ot R00.2 PALPITATIONS 12/31/2015 OLIVIA QUINONES MD Ot Z82.49 FAMILY HX OF ISCHEM HEART DIS AND OTH DI 12/31/2015 Ot V76.12 OTH SCREEN MAMMO-MALIGN NEOPLASM OF [place] 12/31/2015 Ot V76.12 OTH SCREEN MAMMO-MALIGN NEOPLASM OF [place] 12/31/2015 Ot 368.2 DIPLOPIA 12/31/2015 OSIVON RAGSDALE BAKE ROOM WORKER Ot 300.12 DISSOCIATIVE AMNESIA 12/31/2015 ALEJANDRO FARIA MD Ot 793.82 INCONCLUSIVE MAMMOGRAM 12/31/2015 ALEJANDRO FARIA MD, Ot V76.12 OTH SCREEN MAMMO-MALIGN NEOPLASM OF [place] 12/31/2015 ALEJANDRO FARIA MD Ot 793.80 UNSPEC ABNORMAL MAMMOGRAM 12/31/2015 ALEJANDRO FARIA MD Ot 793.80 UNSPEC ABNORMAL MAMMOGRAM 12/31/2015 ALEJANDRO FARIA MD, Ot V76.12 OTH SCREEN MAMMO-MALIGN NEOPLASM OF [place] 12/31/2015 MENDEZ MARLEY LEISURE STUDIES PROFESSOR Ot 719.41 JOINT PAIN-SHLDER 12/31/2015 MENDEZ MARLEY N LEISURE STUDIES PROFESSOR Ot 719.41 JOINT PAIN-SHLDER 12/31/2015 ALEJANDRO FARIA MD Ot V76.12 OTH SCREEN MAMMO-MALIGN NEOPLASM OF [place] 12/31/2015 MENDEZ MARLEY LEISURE STUDIES PROFESSOR Ot 453.41 ACUTE VENOUS EMBOLISM THROMBOSIS DEEP 12/31/2015 ALEJANDRO FARIA MD Ot Z12.31 ENCNTR SCREEN MAMMOGRAM FOR MALIGNANT NE 12/31/2015 OLIVIA QUINONES MD Ot E78.2 MIXED HYPERLIPIDEMIA 12/31/2015 OLIVIA QUINONES MD Ot I10 ESSENTIAL (PRIMARY) HYPERTENSION 12/31/2015 OLIVIA QUINONES MD Ot I82.409 ACUTE EMBOLISM AND THOMBOS UNSP DEEP VN 12/31/2015 OLIVIA QUINONES MD Ot R00.2 PALPITATIONS 12/31/2015 OLIVIA QUINONES MD, Ot Z82.49 FAMILY HX OF ISCHEM HEART DIS AND OTH DI 01/07/2016 OLIVIA QUINONES MD Ot E78.2 MIXED HYPERLIPIDEMIA 01/07/2016 OLIVIA QUINONES MD, Ot I10 ESSENTIAL (PRIMARY) HYPERTENSION 01/07/2016 OLIVIA QUINONES MD Ot R00.2 PALPITATIONS 01/07/2016 OLIVIA QUINONES MD, Ot Z82.49 FAMILY HX OF ISCHEM HEART DIS AND OTH DI 02/24/2016 ALEJANDRO FARIA MD, Ot D64.9 ANEMIA, UNSPECIFIED 02/24/2016 ALEJANDRO FARIA MD, Ot N92.0 EXCESSIVE AND FREQUENT MENSTRUATION WITH 02/24/2016 ALEJANDRO FARIA MD, Ot N93.8 OTHER SPECIFIED ABNORMAL UTERINE AND VAG 02/24/2016 ALEJANDRO FARIA MD, Ot R19.09 OTHER INTRA-ABDOMINAL AND PELVIC SWELLIN 02/24/2016 ALEJANDRO FARIA MD, Ot Z01.812 ENCOUNTER FOR PREPROCEDURAL LABORATORY E 02/24/2016 ALEJANDRO FARIA MD, Ot Z11.2 ENCOUNTER FOR SCREENING FOR OTHER BACTER 02/24/2016 Ot V76.12 OTH SCREEN MAMMO-MALIGN NEOPLASM OF [place] 02/24/2016 Ot V76.12 OTH SCREEN MAMMO-MALIGN NEOPLASM OF [place] 02/24/2016 Ot 368.2 DIPLOPIA 02/24/2016 IVON LIMA Ot 300.12 DISSOCIATIVE AMNESIA 02/24/2016 ALEJANDRO FARIA MD Ot 793.82 INCONCLUSIVE MAMMOGRAM 02/24/2016 ALEJANDRO FARIA MD, Ot V76.12 OTH SCREEN MAMMO-MALIGN NEOPLASM OF [place] 02/24/2016 ALEJANDRO FARIA MD Ot 793.80 UNSPEC ABNORMAL MAMMOGRAM 02/24/2016 ALEJANDRO FARIA MD Ot 793.80 UNSPEC ABNORMAL MAMMOGRAM 02/24/2016 ALEJANDRO FARIA MD, Ot V76.12 OTH SCREEN MAMMO-MALIGN NEOPLASM OF [place] 02/24/2016 MENDEZ MARLEY N LEISURE STUDIES PROFESSOR Ot 719.41 JOINT PAIN-SHLDER 02/24/2016 MENDEZ MARLEY N LEISURE STUDIES PROFESSOR Ot 719.41 JOINT PAIN-SHLDER 02/24/2016 ALEJANDRO FARIA MD, Ot V76.12 OTH SCREEN MAMMO-MALIGN NEOPLASM OF [place] 02/24/2016 MENDEZ MARLEY N LEISURE STUDIES PROFESSOR Ot 453.41 ACUTE VENOUS EMBOLISM THROMBOSIS DEEP 02/24/2016 ALEJANDRO FARIA MD, Ot Z12.31 ENCNTR SCREEN MAMMOGRAM FOR MALIGNANT NE 02/24/2016 OLIVIA QUINONES MD Ot E78.2 MIXED HYPERLIPIDEMIA 02/24/2016 OLIVIA QUINONES MD Ot I10 ESSENTIAL (PRIMARY) HYPERTENSION 02/24/2016 OLIVIA QUINONES MD Ot R00.2 PALPITATIONS 02/24/2016 OLIVIA QUINONES MD Ot Z82.49 FAMILY HX OF ISCHEM HEART DIS AND OTH DI 02/24/2016 ALEJANDRO FARIA MD, Ot Z12.31 ENCNTR SCREEN MAMMOGRAM FOR MALIGNANT NE 02/24/2016 OLIVIA QUINONES MD Ot E78.2 MIXED HYPERLIPIDEMIA 02/24/2016 OLIVIA QUINONES MD Ot I10 ESSENTIAL (PRIMARY) HYPERTENSION 02/24/2016 OLIVIA QUINONES MD Ot R00.2 PALPITATIONS 02/24/2016 OLIVIA QUINONES MD Ot Z82.49 FAMILY HX OF ISCHEM HEART DIS AND OTH DI 02/24/2016 ALEJANDRO FARIA MD, Ot Z12.31 ENCNTR SCREEN MAMMOGRAM FOR MALIGNANT NE 03/03/2016 ALEJANDRO FARIA MD, Ot D25.1 INTRAMURAL LEIOMYOMA OF UTERUS 03/03/2016 ALEJANDRO FARIA MD Ot N72 INFLAMMATORY DISEASE OF CERVIX UTERI 03/03/2016 ALEJANDRO FARIA MD, Ot N83.01 FOLLICULAR CYST OF RIGHT OVARY 03/03/2016 ALEJANDRO FARIA MD, Ot N83.202 UNSPECIFIED OVARIAN CYST, LEFT SIDE 03/03/2016 ALEJANDRO FARIA MD, Ot N83.8 OTH NONINFLAMMATORY DISORD OF OVARY, FAL 03/11/2016 ALEJANDRO FARIA MD, Ot D25.1 INTRAMURAL LEIOMYOMA OF UTERUS 03/11/2016 ALEJANDRO FARIA MD, Ot N72 INFLAMMATORY DISEASE OF CERVIX UTERI 03/11/2016 ALEJANDRO FARIA MD, Ot N83.01 FOLLICULAR CYST OF RIGHT OVARY 03/11/2016 ALEJANDRO FARIA MD, Ot N83.202 UNSPECIFIED OVARIAN CYST, LEFT SIDE 03/11/2016 ALEJANDRO FARIA MD, Ot N83.8 OTH NONINFLAMMATORY DISORD OF OVARY, FAL 03/13/2016 ALEJANDRO FARIA MD, Ot D25.1 INTRAMURAL LEIOMYOMA OF UTERUS 03/13/2016 ALEJANDRO FARIA MD, Ot N72 INFLAMMATORY DISEASE OF CERVIX UTERI 03/13/2016 ALEJANDRO FARIA MD, Ot N83.01 FOLLICULAR CYST OF RIGHT OVARY 03/13/2016 ALEJANDRO FARIA MD, Ot N83.202 UNSPECIFIED OVARIAN CYST, LEFT SIDE 03/13/2016 ALEJANDRO FARIA MD, Ot N83.8 OTH NONINFLAMMATORY DISORD OF OVARY, FAL 03/17/2016 ALEJANDRO FARIA MD, Ot D25.1 INTRAMURAL LEIOMYOMA OF UTERUS 03/17/2016 ALEJANDRO FARIA MD, Ot N72 INFLAMMATORY DISEASE OF CERVIX UTERI 03/17/2016 ALEJANDRO FARIA MD, Ot N83.01 FOLLICULAR CYST OF RIGHT OVARY 03/17/2016 ALEJANDRO FARIA MD, Ot N83.202 UNSPECIFIED OVARIAN CYST, LEFT SIDE 03/17/2016 ALEJANDRO FARIA MD, Ot N83.8 OTH NONINFLAMMATORY DISORD OF OVARY, FAL 06/02/2016 RIGO DOW DO Ot E03.8 OTHER SPECIFIED HYPOTHYROIDISM 06/02/2016 RIGO DOW DO Ot E04.2 NONTOXIC MULTINODULAR GOITER 06/13/2016 Ot V76.12 OTH SCREEN MAMMO-MALIGN NEOPLASM OF [place] 06/13/2016 Ot 368.2 DIPLOPIA 06/13/2016 IVON LIMA Ot 300.12 DISSOCIATIVE AMNESIA 06/13/2016 ALEJANDRO FARIA MD Ot 793.82 INCONCLUSIVE MAMMOGRAM 06/13/2016 ALEJANDRO FARIA MD, Ot V76.12 OTH SCREEN MAMMO-MALIGN NEOPLASM OF [place] 06/13/2016 ALEJANDRO FARIA MD Ot 793.80 UNSPEC ABNORMAL MAMMOGRAM 06/13/2016 ALEJANDRO FARIA MD Ot 793.80 UNSPEC ABNORMAL MAMMOGRAM 06/13/2016 ALEJANDRO FARIA MD, Ot V76.12 OTH SCREEN MAMMO-MALIGN NEOPLASM OF [place] 06/13/2016 MENDEZ MARLEY LEISURE STUDIES PROFESSOR Ot 719.41 JOINT PAIN-SHLDER 06/13/2016 MENDEZ MARLEY LEISURE STUDIES PROFESSOR Ot 719.41 JOINT PAIN-SHLDER 06/13/2016 ALEJANDRO FARIA MD, Ot V76.12 OTH SCREEN MAMMO-MALIGN NEOPLASM OF [place] 06/13/2016 MENDEZ MARLEY LEISURE STUDIES PROFESSOR Ot 453.41 ACUTE VENOUS EMBOLISM THROMBOSIS DEEP 06/13/2016 ALEJANDRO FARIA MD, Ot Z12.31 ENCNTR SCREEN MAMMOGRAM FOR MALIGNANT NE 06/13/2016 OLIVIA QUINONES MD Ot E78.2 MIXED HYPERLIPIDEMIA 06/13/2016 OLIVIA QUINONES MD Ot I10 ESSENTIAL (PRIMARY) HYPERTENSION 06/13/2016 OLIVIA QUINONES MD Ot R00.2 PALPITATIONS 06/13/2016 OLIVIA QUINONES MD Ot Z82.49 FAMILY HX OF ISCHEM HEART DIS AND OTH DI 06/13/2016 RIGO DOW DO Ot E03.8 OTHER SPECIFIED HYPOTHYROIDISM 06/13/2016 RIGO DOW DO Ot E04.2 NONTOXIC MULTINODULAR GOITER 06/14/2016 RIGO DOW DO Ot E03.8 OTHER SPECIFIED HYPOTHYROIDISM 06/14/2016 RIGO DOW DO Ot E04.2 NONTOXIC MULTINODULAR GOITER 06/15/2016 RIGO DOW DO Ot E03.8 OTHER SPECIFIED HYPOTHYROIDISM 06/15/2016 RIGO DOW DO Ot E04.2 NONTOXIC MULTINODULAR GOITER 06/15/2016 ALEJANDRO FARIA MD, Ot Z12.31 ENCNTR SCREEN MAMMOGRAM FOR MALIGNANT NE 06/15/2016 OLIVIA QUINONES MD Ot E78.2 MIXED HYPERLIPIDEMIA 06/15/2016 OLIVIA QUINONES MD Ot I10 ESSENTIAL (PRIMARY) HYPERTENSION 06/15/2016 OLIVIA QUINONES MD Ot R00.2 PALPITATIONS 06/15/2016 OLIVIA QUINONES MD Ot Z82.49 FAMILY HX OF ISCHEM HEART DIS AND OTH DI 10/14/2016 MENDEZ MARLEY LEISURE STUDIES PROFESSOR Ot M54.5 LOW BACK PAIN 10/14/2016 MENDEZ MRALEY LEISURE STUDIES PROFESSOR Ot M54.6 PAIN IN THORACIC SPINE 10/14/2016 MENDEZ MARLEY LEISURE STUDIES PROFESSOR Ot M51.36 OTHER INTERVERTEBRAL DISC DEGENERATION, 10/19/2016 ALEJANDRO FARIA MD Ot Z12.31 ENCNTR SCREEN MAMMOGRAM FOR MALIGNANT NE 05/26/2017 JULES MELO MD Ot Z01.818 ENCOUNTER FOR OTHER PREPROCEDURAL EXAMIN 05/26/2017 JULES MELO MD Ot Z12.11 ENCOUNTER FOR SCREENING FOR MALIGNANT NE 05/26/2017 JULES MELO MD Ot Z80.0 FAMILY HISTORY OF MALIGNANT NEOPLASM OF 05/29/2017 JULES MELO MD Ot Z01.818 ENCOUNTER FOR OTHER PREPROCEDURAL EXAMIN 05/29/2017 JULES MELO MD Ot Z12.11 ENCOUNTER FOR SCREENING FOR MALIGNANT NE 05/29/2017 JULES MELO MD Ot Z80.0 FAMILY HISTORY OF MALIGNANT NEOPLASM OF 05/31/2017 Ot 368.2 DIPLOPIA 05/31/2017 IVON LIMA Ot 300.12 DISSOCIATIVE AMNESIA 05/31/2017 ALEJANDRO FARIA MD Ot 793.82 INCONCLUSIVE MAMMOGRAM 05/31/2017 ALEJANDRO FARIA MD Ot V76.12 OTH SCREEN MAMMO-MALIGN NEOPLASM OF [place] 05/31/2017 ALEJANDRO FARIA MD Ot 793.80 UNSPEC ABNORMAL MAMMOGRAM 05/31/2017 ALEJANDRO FARIA MD Ot 793.80 UNSPEC ABNORMAL MAMMOGRAM 05/31/2017 ALEJANDRO FARIA MD Ot V76.12 OTH SCREEN MAMMO-MALIGN NEOPLASM OF [place] 05/31/2017 MENDEZ MARLEY LEISURE STUDIES PROFESSOR Ot 719.41 JOINT PAIN-SHLDER 05/31/2017 MARLEY, ASHDEN N LEISURE STUDIES PROFESSOR Ot 719.41 JOINT PAIN-SHLDER 05/31/2017 ALEJANDRO FARIA MD Ot V76.12 OTH SCREEN MAMMO-MALIGN NEOPLASM OF [place] 05/31/2017 MENDEZ MARLEY LEISURE STUDIES PROFESSOR Ot 453.41 ACUTE VENOUS EMBOLISM THROMBOSIS DEEP 05/31/2017 ALEJANDRO FARIA MD Ot Z12.31 ENCNTR SCREEN MAMMOGRAM FOR MALIGNANT NE 05/31/2017 STACIE VILLANUEVA, OLIVIA Castañeda Ot E78.2 MIXED HYPERLIPIDEMIA 05/31/2017 STACIE VILLANUEVA, OLIVIA Castañeda Ot I10 ESSENTIAL (PRIMARY) HYPERTENSION 05/31/2017 STACIE VILLANUEVA, OLIVIA Castañeda Ot R00.2 PALPITATIONS 05/31/2017 STACIE VILLANUEVA, OLIVIA Castañeda Ot Z82.49 FAMILY HX OF ISCHEM HEART DIS AND OTH DI 05/31/2017 RIGO DOW DO Ot E03.8 OTHER SPECIFIED HYPOTHYROIDISM 05/31/2017 RIGO DOW DO Ot E04.2 NONTOXIC MULTINODULAR GOITER 05/31/2017 MENDEZ MARLEY LEISURE STUDIES PROFESSOR Ot M54.5 LOW BACK PAIN 05/31/2017 MENDEZ MARLEY LEISURE STUDIES PROFESSOR Ot M54.6 PAIN IN THORACIC SPINE 05/31/2017 MENDEZ MARLEY LEISURE STUDIES PROFESSOR Ot M51.36 OTHER INTERVERTEBRAL DISC DEGENERATION, 05/31/2017 ALEJANDRO FARIA MD Ot Z12.31 ENCNTR SCREEN MAMMOGRAM FOR MALIGNANT NE 06/02/2017 JULES MELO MD Ot K62.1 RECTAL POLYP 06/02/2017 JULES MELO MD Ot Z12.11 ENCOUNTER FOR SCREENING FOR MALIGNANT NE 06/02/2017 JULES MELO MD Ot Z79.899 OTHER TIP OUT WORKER (CURRENT) DRUG THERAPY 06/02/2017 JULES MELO MD Ot Z80.0 FAMILY HISTORY OF MALIGNANT NEOPLASM OF 06/06/2017 JULES MELO MD Ot K62.1 RECTAL POLYP 06/06/2017 JULES MELO MD Ot Z12.11 ENCOUNTER FOR SCREENING FOR MALIGNANT NE 06/06/2017 JULES MELO MD Ot Z79.899 OTHER TIP OUT WORKER (CURRENT) DRUG THERAPY 06/06/2017 JULES MELO MD Ot Z80.0 FAMILY HISTORY OF MALIGNANT NEOPLASM OF 06/08/2017 JULES MELO MD Ot K62.1 RECTAL POLYP 06/08/2017 JULES MELO MD Ot Z12.11 ENCOUNTER FOR SCREENING FOR MALIGNANT NE 06/08/2017 LORIE VILLANUEVA, JULES Bales Ot Z79.899 OTHER USP (CURRENT) DRUG THERAPY 06/08/2017 JULES MELO MD Ot Z80.0 FAMILY HISTORY OF MALIGNANT NEOPLASM OF 06/11/2017 JULES MELO MD Ot K62.1 RECTAL POLYP 06/11/2017 JULES MELO MD Ot Z12.11 ENCOUNTER FOR SCREENING FOR MALIGNANT NE 06/11/2017 JULES MELO MD Ot Z79.899 OTHER TIP OUT WORKER (CURRENT) DRUG THERAPY 06/11/2017 JULES MELO MD Ot Z80.0 FAMILY HISTORY OF MALIGNANT NEOPLASM OF 09/19/2017 Ot 368.2 DIPLOPIA 09/19/2017 IVON LIMA Ot 300.12 DISSOCIATIVE AMNESIA 09/19/2017 ALEJANDRO FARIA MD Ot 793.82 INCONCLUSIVE MAMMOGRAM 09/19/2017 ALEJANDRO FARIA MD, Ot V76.12 OTH SCREEN MAMMO-MALIGN NEOPLASM OF [place] 09/19/2017 ALEJANDRO FARIA MD Ot 793.80 UNSPEC ABNORMAL MAMMOGRAM 09/19/2017 ALEJANDRO FARIA MD Ot 793.80 UNSPEC ABNORMAL MAMMOGRAM 09/19/2017 ALEJANDRO FARIA MD, Ot V76.12 OTH SCREEN MAMMO-MALIGN NEOPLASM OF [place] 09/19/2017 MENDEZ MARLEY LEISURE STUDIES PROFESSOR Ot 719.41 JOINT PAIN-SHLDER 09/19/2017 MENDEZ MARLEY LEISURE STUDIES PROFESSOR Ot 719.41 JOINT PAIN-SHLDER 09/19/2017 ALEJANDRO FARIA MD, Ot V76.12 OTH SCREEN MAMMO-MALIGN NEOPLASM OF [place] 09/19/2017 MENDEZ MARLEY LEISURE STUDIES PROFESSOR Ot 453.41 ACUTE VENOUS EMBOLISM THROMBOSIS DEEP 09/19/2017 ALEJANDRO FARIA MD Ot Z12.31 ENCNTR SCREEN MAMMOGRAM FOR MALIGNANT NE 09/19/2017 OLIVIA QUINONES MD Ot E78.2 MIXED HYPERLIPIDEMIA 09/19/2017 OLIVIA QUNIONES MD Ot I10 ESSENTIAL (PRIMARY) HYPERTENSION 09/19/2017 OLIVIA QUINONES MD Ot R00.2 PALPITATIONS 09/19/2017 OLIVIA QUINONES MD Ot Z82.49 FAMILY HX OF ISCHEM HEART DIS AND OTH DI 09/19/2017 RIGO DOW DO Ot E03.8 OTHER SPECIFIED HYPOTHYROIDISM 09/19/2017 RIGO DOW DO Ot E04.2 NONTOXIC MULTINODULAR GOITER 09/19/2017 MENDEZ MARLEY LEISURE STUDIES PROFESSOR Ot M54.5 LOW BACK PAIN 09/19/2017 MENDEZ MARLEY LEISURE STUDIES PROFESSOR Ot M54.6 PAIN IN THORACIC SPINE 09/19/2017 MENDEZ MARLEY LEISURE STUDIES PROFESSOR Ot M51.36 OTHER INTERVERTEBRAL DISC DEGENERATION, 09/19/2017 ALEJANDRO FARIA MD, Ot Z12.31 ENCNTR SCREEN MAMMOGRAM FOR MALIGNANT NE 01/08/2018 ALEJANDRO FARIA MD Ot 793.82 INCONCLUSIVE MAMMOGRAM 01/08/2018 ALEJANDRO FARIA MD, Ot V76.12 OTH SCREEN MAMMO-MALIGN NEOPLASM OF [place] 01/08/2018 ALEJANDRO FARIA MD Ot 793.80 UNSPEC ABNORMAL MAMMOGRAM 01/08/2018 ALEJANDRO FARIA MD Ot 793.80 UNSPEC ABNORMAL MAMMOGRAM 01/08/2018 ALEJANDRO FARIA MD, Ot V76.12 OTH SCREEN MAMMO-MALIGN NEOPLASM OF [place] 01/08/2018 MENDEZ MARLEY LEISURE STUDIES PROFESSOR Ot 719.41 JOINT PAIN-SHLDER 01/08/2018 MENDEZ MARLEY LEISURE STUDIES PROFESSOR Ot 719.41 JOINT PAIN-SHLDER 01/08/2018 ALEJANDRO FARIA MD, Ot V76.12 OTH SCREEN MAMMO-MALIGN NEOPLASM OF [place] 01/08/2018 MENDEZ MARLEY LEISURE STUDIES PROFESSOR Ot 453.41 ACUTE VENOUS EMBOLISM THROMBOSIS DEEP 01/08/2018 ALEJANDOR FARIA MD, Ot Z12.31 ENCNTR SCREEN MAMMOGRAM FOR MALIGNANT NE 01/08/2018 OLIVIA QUINONES MD Ot E78.2 MIXED HYPERLIPIDEMIA 01/08/2018 OLIVIA QUINONES MD Ot I10 ESSENTIAL (PRIMARY) HYPERTENSION 01/08/2018 OLIVIA QUINONES MD Ot R00.2 PALPITATIONS 01/08/2018 OLIVIA QUINONES MD Ot Z82.49 FAMILY HX OF ISCHEM HEART DIS AND OTH DI 01/08/2018 RIGO DOW DO Ot E03.8 OTHER SPECIFIED HYPOTHYROIDISM 01/08/2018 RIGO DOW DO Ot E04.2 NONTOXIC MULTINODULAR GOITER 01/08/2018 MENDEZ MARLEY APRN Ot M54.5 LOW BACK PAIN 01/08/2018 MENDEZ MARLEY APRN Ot M54.6 PAIN IN THORACIC SPINE 01/08/2018 MENDEZ MARLEY LEISURE STUDIES PROFESSOR Ot M51.36 OTHER INTERVERTEBRAL DISC DEGENERATION, 01/08/2018 ALEJANDRO FARIA MD, Ot Z12.31 ENCNTR SCREEN MAMMOGRAM FOR MALIGNANT NE 01/08/2018 ALEJANDRO FARIA MD, Ot Z12.31 ENCNTR SCREEN MAMMOGRAM FOR MALIGNANT NE 01/14/2018 GINA BYNUM APRN Ot M79.605 PAIN IN LEFT LEG 01/14/2018 GINA BYNUM APRN Ot R20.2 PARESTHESIA OF SKIN 02/26/2018 OLIVIA QUINONES MD Ot E78.5 HYPERLIPIDEMIA, UNSPECIFIED 02/26/2018 OLIVIA QUINONES MD Ot I08.1 RHEUMATIC DISORDERS OF BOTH MITRAL AND T 02/26/2018 OLIVIA QUINONES MD Ot I10 ESSENTIAL (PRIMARY) HYPERTENSION 02/26/2018 OLIVIA QUINONES MD Ot I82.409 ACUTE EMBOLISM AND THOMBOS UNSP DEEP VN 02/26/2018 OLIVIA QUINONES MD Ot R00.2 PALPITATIONS 04/12/2018 NELL MO Ot E78.5 HYPERLIPIDEMIA, UNSPECIFIED 04/12/2018 NELL MO Ot I10 ESSENTIAL (PRIMARY) HYPERTENSION 04/12/2018 NELL MO Ot R00.2 PALPITATIONS 04/17/2018 NELL MO Ot E78.5 HYPERLIPIDEMIA, UNSPECIFIED 04/17/2018 NELL MO Ot I10 ESSENTIAL (PRIMARY) HYPERTENSION 04/17/2018 NELL MO Ot R00.2 PALPITATIONS Procedures Code Description Performed By Performed On 47.01 LAPAROSCOP APPENDECTOMY 08/27/2009 Results Test Result Range Complete blood count (CBC) with automated white blood cell (WBC) differential - 02/24/16 15:45 Blood leukocytes automated count (number/volume) 9.3 10*3/uL 4.3-11.0 Blood erythrocytes automated count (number/volume) 4.32 10*6/uL 4.35-5.85 Venous blood hemoglobin measurement (mass/volume) 13.4 g/dL 11.5-16.0 Blood hematocrit (volume fraction) 40 % 35-52 Automated erythrocyte mean corpuscular volume 92 [foz_us] 80-99 Automated erythrocyte mean corpuscular hemoglobin (mass per erythrocyte) 31 pg 25-34 Automated erythrocyte mean corpuscular hemoglobin concentration measurement ( mass/volume) 34 g/dL 32-36 Automated erythrocyte distribution width ratio 12.9 % 10.0-14.5 Automated blood platelet count (count/volume) 224 10*3/uL 130-400 Automated blood platelet mean volume measurement 11.1 [foz_us] 7.4-10.4 Automated blood neutrophils/100 leukocytes 70 % 42-75 Automated blood lymphocytes/100 leukocytes 22 % 12-44 Blood monocytes/100 leukocytes 7 % 0-12 Automated blood eosinophils/100 leukocytes 1 % 0-10 Automated blood basophils/100 leukocytes 0 % 0-10 Blood neutrophils automated count (number/volume) 6.5 10*3 1.8-7.8 Blood lymphocytes automated count (number/volume) 2.0 10*3 1.0-4.0 Blood monocytes automated count (number/volume) 0.7 10*3 0.0-1.0 Automated eosinophil count 0.1 10*3/uL 0.0-0.3 Automated blood basophil count (count/volume) 0.0 10*3/uL 0.0-0.1 Blood type T Indirect antibody screen panel - 02/24/16 15:45 ABO+Rh group OP NRG Transfusion band number TNP NRG Blood group antibody screen NEGATIVE NRG Methicillin resistant Staphylococcus aureus (MRSA) screening culture - 15:45 Methicillin resistant Staphylococcus aureus (MRSA) screening culture NEG NRG Urine beta human chorionic gonadotropin (hCG) measurement - 03/02/16 11:00 Urine beta human chorionic gonadotropin (hCG) measurement NEGATIVE NEGATIVE Blood type T Indirect antibody screen panel - 03/02/16 11:10 ABO+Rh group OP NRG Transfusion band number [id number] NRG Blood group antibody screen NEGATIVE NRG IONIZED CALCIUM (SEND OFF) - 06/02/16 14:30 Blood ionized calcium measurement (mass/volume) 1.16 % 1.16-1.32 Venous blood ionized calcium measurement adjusted to pH 7.4 (moles/volume) 1.16 % 1.16-1.32 pH measurement 7.39 NRG Encounters ACCT No. Visit Date/Time Discharge Status Pt. Type Provider Facility Loc./Unit Complaint [id number] 04/11/2018 07:30:00 04/11/2018 23:59:59 CLS Outpatient NELL MO [facility] CARD DVT,HEART PALPITATIONS [id number] 02/22/2018 11:52:00 02/22/2018 23:59:59 CLS Outpatient OLIVIA QUINONES MD [facility] CARD DVT,HTN,PALPITATIONS [id number] 01/08/2018 11:11:00 01/08/2018 23:59:59 CLS Outpatient GINA BYNUM APRN [facility] RAD PAIN IN LT LEG [id number] 09/19/2017 09:39:00 09/19/2017 23:59:59 CLS Outpatient ALEJANDRO FARIA MD [facility] RAD ROUTINE SCREENING [id number] 06/02/2017 06:57:00 06/02/2017 10:30:00 DIS Outpatient JULES MELO MD [facility] ENDO SCREENING/FAMILY HX COLON CA [id number] 05/26/2017 05:42:00 05/26/2017 12:40:00 DIS Outpatient JULES MELO MD [facility] PREOP COLONOSCOPY [id number] 10/07/2016 10:26:00 10/07/2016 23:59:59 CLS Outpatient ALEJANDRO FARIA MD [facility] RAD ROUTINE SCREENING [id number] 09/26/2016 16:02:00 09/26/2016 23:59:59 CLS Outpatient MENDEZ MARLEY APRN [facility] RAD LOW BACK PAIN [id number] 09/19/2016 14:58:00 09/19/2016 23:59:59 CLS Outpatient MENDEZ MARLEY APRN [facility] RAD LOW BACK PAIN [id number] 06/02/2016 14:11:00 06/02/2016 23:59:59 CLS Outpatient RIGO DOW DO [facility] LAB GOITER MULTINODULAR, HYPOTHYROIDISM [id number] 03/02/2016 10:58:00 03/03/2016 10:05:00 DIS Outpatient ALEJANDRO FARIA MD [facility] SDC DYSFUNCTIONAL UTERINE BLEEDING [id number] 02/24/2016 15:20:00 02/24/2016 15:50:00 DIS Outpatient ALEJANDRO FARIA MD [facility] PREOP DYSFUNCTIONAL UTERINE BLEEDING [id number] 10/16/2015 09:46:00 10/16/2015 23:59:59 CLS Outpatient OLIVIA QUINONES MD [facility] CARD DVT,HLP,HTN,PALPITATIONS ,FAM HX OF CAD [id number] 10/07/2015 11:25:00 10/07/2015 23:59:59 CLS Outpatient ALEJANDRO FARIA MD [facility] RAD ROUTINE [id number] 10/06/2014 09:48:00 10/06/2014 23:59:59 CLS Outpatient ALEJANDRO FARIA MD [facility] RAD SCREENING [id number] 09/30/2014 15:58:00 09/30/2014 23:59:59 CLS Outpatient MENDEZ MARLEY APRN [facility] RAD PAIN AND REDNESS AND SWELING OF LF LEG [id number] 01/24/2014 12:11:00 01/24/2014 23:59:59 CLS Outpatient MENDEZ MARLEY APRN [facility] RAD SHOULDER PAIN [id number] 01/23/2014 09:36:00 01/23/2014 23:59:59 CLS Outpatient MENDEZ MARLEY APRN [facility] RAD SHOULDER PAIN [id number] 10/03/2013 08:53:00 10/03/2013 23:59:59 CLS Outpatient ALEJANDRO FARIA MD [facility] RAD SCREENING [id number] 04/18/2013 14:07:00 04/18/2013 23:59:59 CLS Outpatient ALEJANDRO FARIA MD [facility] RAD 6 MONTH FOLLOW UP [id number] 10/08/2012 14:13:00 10/08/2012 23:59:59 CLS Outpatient ALEJANDRO FARIA MD [facility] RAD ABN MAMMOGRAM [id number] 09/24/2012 10:20:00 09/24/2012 23:59:59 CLS Outpatient ALEJANDRO FARIA MD [facility] RAD SCREENING [id number] 07/05/2012 12:38:00 07/05/2012 23:59:59 CLS Outpatient IVON LIMA [facility] RAD MEMORY LOSS [id number] 04/25/2018 08:46:00 ACT Outpatient OLIVIA QUINONES MD [facility] CATH ABN STRESS TEST,CP,HTN [id number] 07/03/2012 15:04:00 Document Registration [id number] 08/26/2011 14:04:00 Document Registration [id number] 10/22/2010 09:24:00 Document Registration [id number] 08/27/2009 02:17:00 Document Registration
[2018-04-25 11:45] VITALS: BP 151/90
[2018-04-25 12:00] VITALS: BP 141/74
[2018-04-25 12:15] VITALS: BP 138/74
[2018-04-25 12:30] VITALS: BP 134/73
== END 2018-04-25 15:40 | disposition home or self-care (01) ==
LOC: CATH 08:46 → ICU 11:35 → CATH 15:40
PROVIDERS: ATTEND Internal Medicine Cardiovascular Disease
DX: R07.9 Chest pain, unspecified (principal); I25.10 Atherosclerotic heart disease of native coronary artery without angina pectoris; I10 Essential (primary) hypertension; E78.5 Hyperlipidemia, unspecified; R00.2 Palpitations; Z86.718 Personal history of other venous thrombosis and embolism; Z79.899 Other long term (current) drug therapy; Z82.49 Family history of ischemic heart disease and other diseases of the circulatory system; E89.0 Postprocedural hypothyroidism; G47.00 Insomnia, unspecified; F41.9 Anxiety disorder, unspecified
CPT/HCPCS: 36415; 71045; 80053; 85027; 85610; 85730; 87081; 93458

== ENCOUNTER → 2018-10-12 | Outpatient (CLI) | payer BC ==
[~2018-10-12] MED LIST changes: +LISI10TA2 PO; -ROSU10TA PO; +ROSU10TA22 PO
--- NOTE | 2018-10-15 09:20 | Diagnostic Imaging Report ---
INDICATION: Routine screening. COMPARISON: 10/11/2017 and 10/07/2016. TECHNIQUE: 2D and 3D bilateral screening mammography was performed with CAD. FINDINGS: Both breasts are heterogeneously dense, limiting the sensitivity of mammography. Benign-appearing nodules in the upper outer right breast at posterior depth appear to be stable and likely represents a cluster of cysts. No spiculated mass or malignant appearing microcalcifications are seen. Benign calcifications are seen. The axillae are unremarkable. IMPRESSION: No mammographic features suspicious for malignancy are identified. ACR BI-RADS Category 2: Benign findings. Result letter will be mailed to the patient. Note: At least 10% of breast cancer is not imaged by mammography. Dictated by: Dictated on workstation # [id number]
== END ==
LOC: RAD 15:32
PROVIDERS: ATTEND Obstetrics & Gynecology
DX: Z12.31 Encounter for screening mammogram for malignant neoplasm of breast (principal)
CPT/HCPCS: 77067

== ENCOUNTER → 2019-08-20 | Outpatient (CLI) | payer BC ==
[~2019-08-20] MED LIST changes: +HOLD METFORMIN - RECEIVED CONTRAST 20 ML VIAL IV SCH; +IOHEXOL 350 MG/ML 100 ML (OMNIPAQUE 350) VIAL IV ONE; -LYSI500T PO; +LYSI500T10 PO; +NS 100 ML (IVPB) BAG IV ONE
[2019-08-20 07:36] LABS: BUN/CREATININE RATIO 18; CREATININE SERUM 0.73 MG/DL (0.60-1.30); GFR ESTIMATED > 60
--- NOTE | 2019-08-20 09:20 | Diagnostic Imaging Report ---
EXAMINATION: CT angiography head and neck with and without contrast. TECHNIQUE: After intravenous administration of contrast, thin section axial CT angiography of the head and neck was performed. Source data was reformatted into 3D MIP projections. All CT scans use one or more of the following dose optimizing techniques: automated exposure control, MA and/or KvP adjustment based on a patient size and exam type, or iterative reconstruction. HISTORY: Carotid stenosis, abnormal carotid Doppler. Dizziness and giddiness. COMPARISON: None available. FINDINGS: The middle cerebral arteries are normal. The posterior cerebral arteries are normal. The anterior cerebral arteries are normal. There is no large vessel occlusion. No aneurysm or vascular malformation is seen. The origins of the carotid arteries are normal. There are normal carotid bifurcations bilaterally. Internal carotid artery course and caliber is normal without stenosis or aneurysm. Vertebral artery origins are normal. No stenosis is seen in the vertebral arteries. The balbuena-white matter differentiation is normal. No mass effect or midline shift. The ventricles are normal in size and configuration. Basilar cisterns are patent. There are no intra- or extra-axial fluid collections. There is no intracranial hemorrhage. The orbits are normal. There is left maxillary sinus mucosal disease. Mastoid air cells are clear. No soft tissue abnormality is seen. No osseus lesions or fractures are seen. No lymphadenopathy is seen in the neck. Pharynx and larynx appear normal. Salivary glands are symmetric. Musculature and fascia planes are normal. Limited views of the superior thorax are unremarkable. No osseous lesions or fractures are seen. IMPRESSION: 1. Normal vasculature in the head and neck without carotid stenosis. Dictated by: Dictated on workstation # [id number]
== END ==
LOC: CARD 07:10
PROVIDERS: ATTEND Physician Assistant
DX: R42 Dizziness and giddiness (principal); E78.2 Mixed hyperlipidemia; R00.2 Palpitations
CPT/HCPCS: 36415; 70496; 70498; 82565; 84520; 93225; 93226

== ENCOUNTER → 2019-10-14 | Outpatient (CLI) | payer BC ==
[~2019-10-14] MED LIST changes: -HOLD METFORMIN - RECEIVED CONTRAST 20 ML VIAL IV SCH; -IOHEXOL 350 MG/ML 100 ML (OMNIPAQUE 350) VIAL IV ONE; -NS 100 ML (IVPB) BAG IV ONE
--- NOTE | 2019-10-14 11:45 | Diagnostic Imaging Report ---
INDICATION: Routine screening. COMPARISON: 10/12/2018 and 10/11/2017. TECHNIQUE: 2D and 3D bilateral screening mammography was performed with CAD. FINDINGS: Both breasts remain heterogeneously dense, limiting the sensitivity of mammography. The parenchymal pattern is stable. The circumscribed nodules in the outer right breast are stable. No new mass or malignant appearing microcalcifications are seen. The axillae are unremarkable. IMPRESSION: No mammographic features suspicious for malignancy are identified. ACR BI-RADS Category 2: Benign findings. Result letter will be mailed to the patient. Note: At least 10% of breast cancer is not imaged by mammography. Dictated by: Dictated on workstation # [id number]
== END ==
LOC: RAD 08:27
PROVIDERS: ATTEND Obstetrics & Gynecology
DX: Z12.31 Encounter for screening mammogram for malignant neoplasm of breast (principal)
CPT/HCPCS: 77063; 77067

== ENCOUNTER → 2020-10-08 | Outpatient (CLI) | payer BC ==
[~2020-10-08] MED LIST changes: -LISI10TA2 PO; +LISI10TA25 PO; -OXYC-465 PO; +OXYC-556 PO
--- NOTE | 2020-10-08 16:25 | Diagnostic Imaging Report ---
INDICATION: Left leg numbness Three views of the lumbosacral spine show normal height and alignment of the vertebral bodies. There is mild disc space narrowing and spondylosis at L1-L2. There is mild disc space narrowing at L4-L5. No significant degenerative facet disease is evident. There is no fracture or other acute abnormality. IMPRESSION: There are mild degenerative changes present with no significant change from a prior study dated 09/19/2016. Dictated by: Dictated on workstation # [id number]
== END ==
LOC: RAD 14:41
DX: M47.816 Spondylosis without myelopathy or radiculopathy, lumbar region (principal)
CPT/HCPCS: 72100

== ENCOUNTER → 2020-10-20 | Outpatient (CLI) | payer BC ==
--- NOTE | 2020-10-20 14:21 | Diagnostic Imaging Report ---
INDICATION: Routine screening. COMPARISON: 10/14/2019 and 10/12/2018. TECHNIQUE: 2D and 3D bilateral screening mammography was performed with CAD. FINDINGS: Both breasts are heterogeneously dense, limiting the sensitivity of mammography. The parenchymal pattern is stable. No mass or malignant-appearing microcalcifications are seen. There are benign calcifications present. The axillae are unremarkable. IMPRESSION: No mammographic features suspicious for malignancy are identified. ACR BI-RADS Category 2: Benign findings. Result letter will be mailed to the patient. Note: At least 10% of breast cancer is not imaged by mammography. Dictated by: Dictated on workstation # [id number]
== END ==
LOC: RAD 08:45
PROVIDERS: ATTEND Obstetrics & Gynecology
DX: Z12.31 Encounter for screening mammogram for malignant neoplasm of breast (principal)
CPT/HCPCS: 77063; 77067

== ENCOUNTER 2021-02-16 16:44 | Emergency (ER) | payer BC ==
[~2021-02-16] VITALS: Ht 170 cm; Wt 93.0 kg
[~2021-02-16 16:44] MED LIST changes: -METH5TAB5 PO; +METH5TAB95 PO
[2021-02-16] MEDS ORDERED: cloNIDine 0.1 MG (CATAPRES) TAB PO ONE (17:30)
--- NOTE | 2021-02-16 17:33 | ED Cardiac General ---
History of Present Illness General Chief Complaint: Cardiac/General Problems Stated Complaint: ELEV BP Nursing Triage Note: AMB TO ROOM REPORTS HAS FELT OFF TODAY AT DIFFERENT TIME TODAY HAS HAD TNGLING IN FINGERS TOOK B/P SYSTOLIC WAS IN 180/100 DENIES CHEST PIAN Source: patient Exam Limitations: no limitations (ISAC PATHAK APRN) History of Present Illness Date Seen by Provider: Feb 16, 2021 Time Seen by Provider: 17:30 Initial Comments To ER with reports of high blood pressure. 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 No visual disturbances or speech disturbances. She had some tingling briefly for a few seconds in each of her fingers on each hand. At this time she feels back to normal. She takes Bystolic 5 mg and lisinopril 10 mg for hypertension control. She follows with Dr. Ledbetter and has had 2 cardiac catheterizations without intervention. No fevers or chills or chest pain or shortness of breath or nausea. She did awaken on 02/14/2021 and had a migraine so she forgot to take her medications that day. She then restarted them yesterday and today as well. Timing/Duration: constant Severity: mild Activities at Onset: none Prior CP/Workup: no prior chest pain NTG SL ERECTING ENGINEER: No ASA po ERECTING ENGINEER: No Associated Systoms: Nausea/Vomiting (ISAC PATHAK APRN) Allergies and Home Medications Allergies Coded Allergies: No Known Drug Allergies (Unverified , 05/26/17) Patient Home Medication List Home Medication List Reviewed: Yes (IASC PATHAK APRN) Calcium Carbonate/Vitamin D3 (Caltrate 600 + D Tablet) 1 Each Tablet, 1 EACH PO DAILY, (Reported) Entered as Reported by: WILLY SUGGS on 02/24/16 1553 Estradiol (Estradiol Tablet) 1 Mg Tablet, 1 MG PO DAILY Prescribed by: ALEJANDRO MENDOSA on 03/02/161953 Levothyroxine Sodium (Levothyroxine Sodium) 100 Mcg Tablet, 100 MCG PO DAILY, (Reported) Entered as Reported by: HAYDER ERNST on 05/26/17 1236 Lisinopril (Lisinopril) 10 Mg Tablet, 10 MG PO DAILY, (Reported) Entered as Reported by: JOSE SOLORZANO on 04/25/18 0936 Multivitamin (Multivitamins) 1 Each Capsule, 1 EACH PO DAILY, (Reported) Entered as Reported by: HAYDER ERNST on 05/26/17 1236 Nebivolol HCl (Bystolic) 5 Mg Tablet, 5 MG PO DAILY, (Reported) Entered as Reported by: WILLY SUGGS on 02/24/16 1553 Rosuvastatin Calcium (Crestor) 10 Mg Tablet, 10 MG PO DAILY, (Reported) Entered as Reported by: HAYDER ERNST on 05/26/17 1236 Review of Systems Review of Systems Constitutional: see HPI EENTM: No Symptoms Reported Respiratory: No Symptoms Reported Cardiovascular: See HPI; Denies Chest Pain Gastrointestinal: No Symptoms Reported Genitourinary: No Symptoms Reported Musculoskeletal: no symptoms reported Skin: no symptoms reported Psychiatric/Neurological: No Symptoms Reported Endocrine: No Symptoms Reported Hematologic/Lymphatic: No Symptoms Reported (ISAC PATHAK APRN) Past Pvzbhti-Iokxxc-Jyhrkw Hx Patient Social History Tobacco Use?: No Use of E-Cig and/or Vaping dev: No Substance use?: No Alcohol Use?: No (ISAC PATHAK APRN) Immunizations Up To Date First/Initial COVID19 Vaccinat: 07/08 Second COVID19 Vaccination Hiro: 08/05 COVID19 Vaccine Chief Estimator: DENNIS (ISAC PATHAK APRN) Seasonal Allergies Seasonal Allergies: No (ISAC PATHAK APRN) Past Medical History Appendectomy, Section, Hysterectomy, Thyroidectomy, Tubal Ligation Respiratory: No Currently Using CPAP: No Currently Using BIPAP: No Cardiac: Yes Deep Vein Thrombosis, High Cholesterol, Hypertension, Palpitations Neurological: No Reproductive Disorders: No 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 Sexually Transmitted Disease: No HIV/AIDS: No Gastrointestinal: No Loss of Vision: Bilateral Hearing Impairment: Denies Cancer: No Blood Disorders: Yes (hx of DVT) Adverse Reaction/Blood Tranf: No (N/A) (ISAC PATHAK APRN) Family Medical History Arthritis 19 MOTHER Cardiovascular disease 19 MOTHER Colon cancer 19 MOTHER Colon cancer 19 MOTHER Diabetes mellitus 19 MOTHER Hypertension 19 MOTHER Kidney disease 19 MOTHER Thyroid disease 19 FATHER 19 MOTHER G8 SISTER Physical Exam Vital Signs Vital Signs - First Documented 02/16/21 16:55 Pulse 66 Resp 18 B/P (MAP) 221/102 (141) Pulse Ox 98 O2 Delivery Room Air (RONY CHACON MD) Vital Signs Capillary Refill : Less Than 3 Seconds (ISAC PATHAK APRN) Height, Weight, BMI Height: 5'7.00" Weight: 210lbs. 0.0oz. 95.077746hc; 32.00 BMI Method: General Appearance: No Apparent Distress, WD/WN Neck: Full Range of Motion, Normal Inspection Respiratory: No Accessory Muscle Use, No Respiratory Distress Cardiovascular: Regular Rate, Rhythm, Normal Peripheral Pulses Gastrointestinal: Non Tender, Soft Extremity: Normal Capillary Refill, Normal Inspection Neurologic/Psychiatric: Alert, Oriented x3 Skin: Normal Color, Warm/Dry (ISAC PATHAK APRN) Progress/Results/Core Measures Results/Orders Lab Results Laboratory Tests Test 02/16/21 17:46 Range/Units White Blood Count 9.0 4.3-11.0 10^3/uL Red Blood Count 4.06 3.80-5.11 10^6/uL Hemoglobin 12.2 11.5-16.0 g/dL Hematocrit 37 35-52 % Mean Corpuscular Volume 92 80-99 fL Mean Corpuscular Hemoglobin 30 25-34 pg Mean Corpuscular Hemoglobin Concent 33 32-36 g/dL Red Cell Distribution Width 12.4 10.0-14.5 % Platelet Count 263 130-400 10^3/uL Mean Platelet Volume 10.1 9.0-12.2 fL Immature Granulocyte % (Auto) 0 % Neutrophils (%) (Auto) 65 42-75 % Lymphocytes (%) (Auto) 26 12-44 % Monocytes (%) (Auto) 6 0-12 % Eosinophils (%) (Auto) 2 0-10 % Basophils (%) (Auto) 0 0-10 % Neutrophils # (Auto) 5.9 1.8-7.8 10^3/uL Lymphocytes # (Auto) 2.4 1.0-4.0 10^3/uL Monocytes # (Auto) 0.6 0.0-1.0 10^3/uL Eosinophils # (Auto) 0.2 0.0-0.3 10^3/uL Basophils # (Auto) 0.0 0.0-0.1 10^3/uL Immature Granulocyte # (Auto) 0.0 0.0-0.1 10^3/uL Sodium Level 140 135-145 MMOL/L Potassium Level 3.8 3.6-5.0 MMOL/L Chloride Level 105 98-107 MMOL/L Carbon Dioxide Level 24 21-32 MMOL/L Anion Gap 11 5-14 MMOL/L Blood Urea Nitrogen 14 7-18 MG/DL Creatinine 0.68 0.60-1.30 MG/DL Estimat Glomerular Filtration Rate 90 BUN/Creatinine Ratio 21 Glucose Level 82 70-105 MG/DL Calcium Level 8.8 8.5-10.1 MG/DL Corrected Calcium 8.8 8.5-10.1 MG/DL Magnesium Level 2.2 1.6-2.4 MG/DL Total Bilirubin 0.3 0.1-1.0 MG/DL Aspartate Amino Transf (AST/SGOT) 13 5-34 U/L Alanine Aminotransferase (ALT/SGPT) 14 0-55 U/L Alkaline Phosphatase 88 40-136 U/L B-Type Natriuretic Peptide 101.6 H <100.0 PG/ML Total Protein 6.9 6.4-8.2 GM/DL Albumin 4.0 3.2-4.5 GM/DL Thyroid Stimulating Hormone (TSH) 1.50 0.35-4.94 UIU/ML Free Thyroxine 1.07 0.70-1.48 NG/DL (RONY CHACON MD) Medications Given in ED Current Medications Medications Dose Ordered Sig/Corbin Route Start Time Stop Time Status Last Admin Dose Admin Clonidine HCl 0.1 mg ONCE ONCE PO 02/16/21 17:30 02/16/21 17:31 DC 02/16/21 17:45 0.1 MG (RONY CHACON MD) Vital Signs/I&O 02/16/21 02/16/21 02/16/21 16:55 18:13 18:56 Pulse 66 57 83 Resp 18 18 18 B/P (MAP) 221/102 (141) 176/97 157/82 Pulse Ox 98 100 98 O2 Delivery Room Air Room Air Room Air (RONY CHACON MD) Blood Pressure Mean: 141 Departure Communication (Admissions) 8654-still feels okay. Blood pressure down from 220/100--->170/90. Labs are unremarkable. She is on a low-dose of Bystolic and lisinopril, we can certainly increase these. states that there is been a lot of stress, both of their daughters are moving out of the house, time for finals, a dog is moving into their house and its the holidays. (ISAC PATHAK APRN) Impression Primary Impression: Hypertension Disposition: 01 HOME, SELF-CARE Condition: Stable Departure-Patient Inst. Decision time for Depature: 18:45 (ISAC PATHAK APRN) Referrals: SHARDA FIELDS MD (PCP/Family) Primary Care Physician Patient Instructions: High Blood Pressure Emergencies Add. Discharge Instructions: 1. Go home and take an extra lisinopril 10 mg tablet this evening. Recheck your blood pressure in the morning. Return to ER for any concerns. All discharge instructions reviewed with patient and/or family. Voiced understanding. ATTENDING PHYSICIAN NOTE: I was physically present as attending physician in the emergency department during the care of this patient, but I was not directly involved in the decision making or delivery of care for this patient. (RONY CHACON MD) Copy Copies To 1: OLIVIA LEDBETTER MD; SHARDA FIELDS MD, PETER J APRN Feb 16, 2021 17:32 RONY CHACON MD Feb 16, 2021 20:19
[2021-02-16 17:53] LABS: BASOPHILS % (AUTO) 0 % (0-10); EOSINOPHILS # (AUTO) 0.2 10^3/uL (0.0-0.3); EOSINOPHILS % (AUTO) 2 % (0-10); HEMATOCRIT 37 % (35-52); HEMOGLOBIN 12.2 g/dL (11.5-16.0); LYMPHOCYTES # (AUTO) 2.4 10^3/uL (1.0-4.0); LYMPHOCYTES % (AUTO) 26 % (12-44); MEAN CORPUSCULAR HEMOGLOBIN 30 pg (25-34); MEAN CORPUSCULAR HGB CONC 33 g/dL (32-36); MEAN CORPUSCULAR VOLUME 92 fL (80-99); MEAN PLATELET VOLUME 10.1 fL (9.0-12.2); MONOCYTES # (AUTO) 0.6 10^3/uL (0.0-1.0); MONOCYTES % (AUTO) 6 % (0-12); NEUTROPHILS # (AUTO) 5.9 10^3/uL (1.8-7.8); NEUTROPHILS % (AUTO) 65 % (42-75); PLATELET COUNT 263 10^3/uL (130-400)
[2021-02-16 18:00] LABS: POTASSIUM 3.8 MMOL/L (3.6-5.0)
[2021-02-16 18:01] LABS: CALCIUM 8.8 MG/DL (8.5-10.1)
[2021-02-16 18:02] LABS: TOTAL PROTEIN 6.9 GM/DL (6.4-8.2)
[2021-02-16 18:04] LABS: BILIRUBIN,TOTAL 0.3 MG/DL (0.1-1.0)
[2021-02-16 18:06] LABS: CREATININE SERUM 0.68 MG/DL (0.60-1.30)
[2021-02-16 18:08] LABS: MAGNESIUM 2.2 MG/DL (1.6-2.4)
[2021-02-16 18:29] LABS: FREE T4 (FREE THYROXINE) 1.07 NG/DL (0.70-1.48)
[2021-02-16 18:56] VITALS: BP 157/82
== END 2021-02-16 18:58 | disposition home or self-care (01) ==
LOC: EDUNIT# 16:44 → ER 16:46
DX: I10 Essential (primary) hypertension (principal); E78.00 Pure hypercholesterolemia, unspecified; Z79.899 Other long term (current) drug therapy
CPT/HCPCS: 36415; 80053; 83735; 83880; 84439; 84443; 85025; 93005

== ENCOUNTER → 2021-10-21 | Outpatient (CLI) | payer BC ==
[~2021-10-21] MED LIST changes: +NF-CRES10T PO; -ROSU10TA22 PO
--- NOTE | 2021-10-21 16:07 | Diagnostic Imaging Report ---
Indication: Routine screening. Comparison is made with prior mammograms from 10/20/2020 and 10/14/2019. 2-D and 3-D bilateral screening mammography was performed with CAD. Both breasts are heterogeneously dense, limiting the sensitivity of mammography. Benign calcifications are again noted bilaterally. No mass or malignant-appearing microcalcifications are identified. Axillae are unremarkable. IMPRESSION: BI-RADS Category 2 No mammographic features suspicious for malignancy are identified. ACR BI-RADS Category 2: Benign findings. Result letter will be mailed to the patient. Note: At least 10% of breast cancer is not imaged by mammography. Dictated by: Dictated on workstation # [id number]
== END ==
LOC: RAD 10:16
PROVIDERS: ATTEND Obstetrics & Gynecology
DX: Z12.31 Encounter for screening mammogram for malignant neoplasm of breast (principal)
CPT/HCPCS: 77063; 77067

== ENCOUNTER 2022-05-18 05:39 | Outpatient (CLI) | payer BC ==
[~2022-05-18] VITALS: Ht 170.2 cm; Wt 90.7 kg
[2022-05-20] MEDS ORDERED: AMLO-251 PO (12:39)
[2022-05-20] MEDS ORDERED: OMEG100032 PO (12:39)
[2022-05-20] MEDS ORDERED: ASPI-1238 PO (12:39)
== END 2022-05-20 12:44 | disposition home or self-care (01) ==
LOC: PREOP 05:39
PROVIDERS: ATTEND Internal Medicine
DX: Z01.818 Encounter for other preprocedural examination (principal)

== ENCOUNTER 2022-05-27 07:55 | Day surgery (SDC) | payer BC ==
--- NOTE | 2022-05-17 06:40 | HISTORY AND PHYSICAL ---
DATE OF SERVICE: 05/27/2022 COLONOSCOPY HISTORY AND PHYSICAL HISTORY OF PRESENT ILLNESS: The patient is a 57-year-old white female referred by Dr. Sellers for screening colonoscopy. She is deemed to be of higher than average risk as her mother was diagnosed with colon cancer at the age of 60. She last accomplished colonoscopy 5 years ago, at which time, one hyperplastic polyp was removed from the distal rectum with no other areas of neoplasia being identified. She reports she has been trending toward constipation. She will go 6-7 days without going and then she will have a so-called cleaning out, roughly will go 4 or 5 times. She has noted no blood associated with this. There has been no change in weight. She does not have pain until she has not had a bowel movement for 4-5 days and will notice some distention and discomfort. PAST MEDICAL HISTORY: Hyperlipidemia and hypertension with no known history of coronary disease. She has a multinodular goiter and is on thyroid replacement post-thyroidectomy. PAST SURGICAL HISTORY: Thyroidectomy. She has had a total abdominal hysterectomy for benign reasons in 2015 and appendectomy in 2009 and had a right knee scope several years ago. FAMILY HISTORY: As noted in the HPI. 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 REVIEW OF SYSTEMS: CONSTITUTIONAL: Denies night sweats, chills, fever, change in weight. GI: As noted in the HPI. She has had no melena or bright red blood per rectum. PULMONARY: Denies cough, wheezing or shortness of breath. CARDIOVASCULAR: Denies chest discomfort, orthopnea, PND, pedal edema or syncope. PHYSICAL EXAMINATION: GENERAL: Reveals a white female, appeared to be in no acute distress. VITAL SIGNS: Weight 207 pounds, blood pressure 132/82. HEENT: Unremarkable. Sclerae nonicteric. CHEST: Clear to auscultation. CARDIOVASCULAR: Reveals a regular rate and rhythm without murmur, S3, or S4. ABDOMEN: Soft, supple without mass, organomegaly, or tenderness. EXTREMITIES: Reveal no cyanosis, clubbing or edema. ASSESSMENT AND PLAN: The patient is being set up for screening colonoscopy deemed to be of higher than average risk considering her mother was diagnosed with colon cancer at the age of 60. Due to some constipation issues, advised the patient to hold her calcium, continue vitamin D. Discuss amlodipine, change to see if either of these medications are contributing. We had discussed amlodipine change with Dr. Sellers as both of these medications may be contributing to constipation p.r.n. MiraLax in the interim. I thank you for the referral of this pleasant lady. Prep instructions were given and questions were answered. Job ID: [id number] DocumentID: [id number] Dictated Date: 05/11/2022 11:51:32 Financial Analyst Intern Date: 05/11/2022 12:25:00 Dictated By: JULES MELO MD
[~2022-05-27] VITALS: Ht 170 cm; Wt 90.7 kg
[~2022-05-27 07:55] MED LIST changes: +AMLO-251 PO; +ASPI-1238 PO; +OMEG100032 PO
[2022-05-27] MEDS ORDERED: LACTATED RINGERS 1,000 ML IV STA (07:57)
--- NOTE | 2022-05-27 08:04 | Pre-Op Note & Conscious Sedat ---
Pre-Operative Progress Note Date H&P Reviewed: May 27, 2022 Time H&P Reviewed: 08:04 History & Physical: H&P Reviewed, Patient Examed, No changes noted Pre-Op Diagnosis: screening Moderate Sedation PreProcedure ASA Score 2 Airway Lungs Heart ASA score ASA 1: a normal healthy patient ASA 2: a patient with a mild systemic disease (mid diabetes, controlled hypertension, obesity ASA 3: a patient with a severe systemic disease that limits activity (angina, COPD, prior Myocardial infarction) ASA 4: a patient with an incapacitating disease that is a constant threat to life (CHF, renal failure) ASA 5: a moribund patient not expected to survive 24 hrs. (ruptured aneurysm) ASA 6: a declared brain- patient whose organs are being harvested. For emergent operations, add the letter E after the classification Mallampati Classification Grade 2 Sedation Plan Analgesia, Amnesia, Plan communicated to team members, Discussed options with patient/fam, Discussed risks with patient/fam The patient is an appropriate candidate to undergo the planned procedure, sedation, and anesthesia. The patient immediately re-assessed prior to indication. JULES MELO MD May 27, 2022 08:04
[2022-05-27 08:20] VITALS: BP 140/76
[2022-05-27] MEDS ORDERED: PROPOFOL INJECTION 50 ML IV ONE (08:56)
[2022-05-27] MEDS ORDERED: MIDAZOLAM 2 MG/2 ML (VERSED) VIAL ONE (08:56)
[2022-05-27 09:35] VITALS: BP 117/66
[2022-05-27 09:40] VITALS: BP 117/62
--- NOTE | 2022-05-27 09:40 | Progress Note-Post Operative ---
Post-Procedure Note Physician (s)/[employer] (s) Physician JULES MELO MD Pre-Procedure Diagnosis Pre-Procedure Diagnosis: screening Post-Procedure Diagnosis Post-operative diagnosis: Prior to undergoing colonoscopy digital rectal evaluation was performed. Anal sphincter tone was normal and the perianal reflexes intact. No abnormalities noted On digital inspection anal canal or distal rectal vault. the colonoscope was inserted into the rectum and under direct visualization advanced to the cecum. The cecum was identified by indication of the ileocecal valve cecal strap and appendiceal orifice. Photographic documentation was obtained. A careful inspection was made as the colonoscope was withdrawn. Quality the prep was good. Findings: There are no evidence for internal/external hemorrhoids in the rectum sigmoid colon descending colon splenic flexure and transverse colon were were normal. Present at the hepatic flexure was a 3 mm sessile polyp it was biopsied and ablated. There was more than typical amount of blood loss estimated 5 to 10 cc still oozing so Endo Clip was deployed with immediate cessation of bleeding. The colonoscope was advanced to the cecum with normal ascending colon and cecum. On withdrawal under good prep conditions visualization of the deployed Endo Clip on the way out revealed no further bleeding. Quality of the prep was good. Assessment: 1 3 mm sessile polyp was removed via hot forceps from the hepatic flexure with an otherwise normal colonoscopy to the cecum. There was more than the average amount of bleeding so an Endo Clip was deployed with cessation of bleeding. Patient was advised to avoid aspirin nonsteroidal medication for the next week. Considering family history would advocate consideration for repeat screening colonoscopy in 5 years. I thank you for the furl of this pleasant lady sincerely, Jules Melo MD. CC: MD LORIE Archuleta MARK D MD May 27, 2022 09:40
[2022-05-27 10:00] VITALS: BP 126/74
--- NOTE | 2022-05-27 10:32 | Anesthesia-General Post-Op ---
MAC Patient Condition Mental Status/LOC: Same as Preop Cardiovascular: Satisfactory Nausea/Vomiting: Absent Respiratory: Satisfactory Pain: Controlled Complications: Absent Post Op Complications Complications None Follow Up Care/Instructions Patient Instructions None needed. Anesthesiology Discharge Order Discharge Order Patient is doing well, no complaints, stable vital signs, no apparent adverse anesthesia problems. No complications reported per nursing. MARIA ESTHER GARLAND CRNA May 27, 2022 10:32
== END 2022-05-27 10:23 | disposition home or self-care (01) ==
LOC: ENDO 07:55
PROVIDERS: ATTEND Internal Medicine
DX: Z12.11 Encounter for screening for malignant neoplasm of colon (principal); K63.5 Polyp of colon; Z80.0 Family history of malignant neoplasm of digestive organs
CPT/HCPCS: 88305

== ENCOUNTER → 2022-11-08 | Outpatient (CLI) | payer BC ==
--- NOTE | 2022-11-08 16:29 | Diagnostic Imaging Report ---
INDICATION: Routine screening. COMPARISON: 10/21/2021 and 10/20/2020. TECHNIQUE: 2D and 3D bilateral screening mammography was performed with CAD. FINDINGS: Both breasts are heterogeneously dense, limiting the sensitivity of mammography. Benign calcifications in the right breast are noted. The overall parenchymal pattern is stable. No dominant mass or malignant-appearing microcalcifications are seen. The axillae are unremarkable. IMPRESSION: No mammographic features suspicious for malignancy are identified. ACR BI-RADS Category 2: Benign findings. Result letter will be mailed to the patient. Note: At least 10% of breast cancer is not imaged by mammography. Dictated by: Dictated on workstation # [id number]
== END ==
LOC: RAD 15:45
PROVIDERS: ATTEND Obstetrics & Gynecology
DX: Z12.31 Encounter for screening mammogram for malignant neoplasm of breast (principal)
CPT/HCPCS: 77063; 77067